=== PATIENT | male | born 1940 | race Caucasian/White ===

== ENCOUNTER 2024-01-06 17:46 | Emergency (ER) | payer MEDICARE, SELFPAY ==
[2024-01-06 17:51] VITALS: BP 166/95; PULSE 60; TEMP 36.4; O2SAT 97; BMI 24.3
--- NOTE | 2024-01-06 17:57 | ED.UPPEXIN1 ---
HPI HPI - Extremity Injury (Upper) General Chief Complaint: Extremity Injury, Upper Stated Complaint: FALL, UPPER EXTREMITY INJURY Time Seen by Provider: 01/06/24 17:53 Source: patient and family Mode of arrival: Wheelchair Limitations: no limitations History of Present Illness HPI narrative: This patient is here with family members with an injury to his left shoulder. He was trying to step over a snow fence and stumbled. When he got up he stumbled on it again. He is already under the care of Dr. Sheridan or local orthopedist for bursitis in that same left shoulder. He does not have any injury to his head or neck. There is no LOC. He has no pain in his elbow wrist or forearm. Otherwise his vital signs here are stable. His family members indicate that he does have memory loss Related Data Home Medications ?Medication ?Instructions ?Recorded ?Confirmed atorvastatin 80 mg tablet 80 mg PO QPM 01/06/24 01/06/24 clopidogrel 75 mg tablet 75 mg PO .QD 01/06/24 01/06/24 donepezil 5 mg tablet 5 mg PO .QHS 01/06/24 01/06/24 latanoprost 0.005 % eye drops 1 drp ophthalmic (eye) .QHS 01/06/24 01/06/24 rivaroxaban 20 mg tablet (Xarelto) 20 mg PO Q24H 01/06/24 01/06/24 timolol maleate 0.5 % eye drops 1 drp ophthalmic (eye) Q12H 01/06/24 01/06/24 Allergies Allergy/AdvReac Type Severity Reaction Status Date / Time No Known Drug Allergies Allergy Verified 01/06/24 17:51 Opioid HPI Opioid Management Most Recent Pain and Opioid Data: Last Pain Scale 10 01/06/24 18:08 Last MAR Pain Assessment 01/06/24 18:08 Exam Narrative Exam Narrative: Very pleasant gentleman 83 years old. Oriented x 3. Is able to relay the history accurately. Does not seem confused at this moment. Problem focused examination shows her to be pain with no obvious deformity in the left shoulder area. Distal clavicle is slightly sore but is primarily the proximal humerus that sore. His distal radial, ulnar, and median nerve function is normal. He has no pain to his elbow area. He has no evidence of abrasions and or injury contusions to his craniofacial structures. Ribs sternum are all normal. He does have a sternotomy consistent with previous coronary disease and he is on blood thinners. Constitutional Vital Signs, click to edit/add: Last Vital Signs Temp 97.5 F L 01/06/24 17:51 Pulse 60 01/06/24 17:51 Resp 16 01/06/24 17:51 BP 166/95 H 01/06/24 17:51 Pulse Ox 97 01/06/24 17:51 Course Vital Signs Vital signs: Vital Signs Temperature 97.5 F L 01/06/24 17:51 Pulse Rate 60 01/06/24 17:51 Respiratory Rate 16 01/06/24 17:51 Blood Pressure 166/95 H 01/06/24 17:51 Pulse Oximetry 97 01/06/24 17:51 Temperature 97.5 F L 01/06/24 17:51 Pulse Rate 60 01/06/24 17:51 Respiratory Rate 16 01/06/24 17:51 Blood Pressure 166/95 H 01/06/24 17:51 Pulse Oximetry 97 01/06/24 17:51 MDM - Extremity Injury (Upper) MDM Narrative Medical decision making narrative: X-ray of the shoulder are done my preliminary review shows no obvious abnormality. We will await final interpretation from the radiologist. Discharge Plan Discharge Chief Complaint: Extremity Injury, Upper Clinical Impression: Contusion of left shoulder Patient Disposition: Still a Patient Prescriptions / Home Meds: No Action latanoprost 0.005 % drops OPHTHALMIC (EYE) atorvastatin 80 mg tablet donepezil 5 mg tablet ibuprofen 800 mg tablet clopidogrel 75 mg tablet timolol maleate 0.5 % drops OPHTHALMIC (EYE) metoprolol tartrate 25 mg tablet Xarelto 20 mg tablet Print Language: Ugandan Referrals: Physician,Non-Staff, [Physician] - 1 week
--- NOTE | 2024-01-06 17:59 | XR_ITS ---
The [address] [address] Patient Name: ARCHIE DUNCAN MRN: [id number] date: 1940 Sex: M Assigned Patient Location: ER Current Patient Location: ED.MAIN Accession/Order Number: [id number] Exam Date: 01/06/2024 18:18 Report Date: 01/06/2024 19:26 At the request of: AMRIT FARNSWORTH Procedure: XR shoulder LT min 2V IMAGES REVIEWED: XR shoulder LT min 2V COMPARISON: None available. CLINICAL INDICATION: Trauma FINDINGS/IMPRESSION: No acute fracture of the left shoulder. Patient with apparent severe left glenohumeral degenerative change and suspected chronic slight anterior positioning of the humeral head relative to the glenoid as seen on the transscapular Y view. If there is persistent clinical concern for left glenohumeral dislocation consider further evaluation with an axillary view. Moderate degenerative change left AC joint with chronic ossicle. Osteopenia. Electronically authenticated by: CHAU ACEVEDO Date: 01/06/2024 19:26
[2024-01-06] MEDS: HYDROCODONE/ACET 5-325 MG TABLET 1 TAB PO (18:08)
[2024-01-06 19:45] VITALS: BP 135/73; PULSE 60; O2SAT 98
== END 2024-01-06 19:50 | disposition home or self-care (01) ==
PROVIDERS: Emergency Provider Internal Medicine; PCP Internal Medicine
DX: S40.012A Contusion of left shoulder, initial encounter (principal); W01.0XXA Fall on same level from slipping, tripping and stumbling without subsequent striking against object, initial encounter
CPT/HCPCS: 73030; 99283

== ENCOUNTER 2024-01-24 08:38 | Outpatient (OUT) | payer MEDICARE, SELFPAY ==
--- NOTE | 2024-01-24 08:42 | MR_ITS ---
The [address] [address] Patient Name: ARCHIE DUNCAN MRN: [id number] date: 1940 Sex: M Assigned Patient Location: MRI Current Patient Location: Accession/Order Number: [id number] Exam Date: 01/24/2024 09:00 Report Date: 01/25/2024 10:13 At the request of: EPI Carmona APLING Procedure: MR shoulder LT wo con EXAM: MR shoulder LT wo con REASON FOR EXAM: Internal Derangement Of Left Shoulder M24.812. TECHNIQUE: Multiplanar, multisequence imaging of the left shoulder was performed without contrast COMPARISON: Radiographs 01/06/2024. FINDINGS: Study degraded by motion The AC joint is congruent with joint space narrowing, capsular hypertrophy and subchondral edema. Well-corticated ossific body is noted along the superior margin, likely degenerative. Fluid within the subacromial subdeltoid bursa is nonspecific incidental full-thickness rotator cuff tear. Superimposed on tendinosis, there are full-thickness, fullwidth tears of the supraspinatus and infraspinatus tendons with proximal retraction the level the glenoid. The teres minor tendon is intact. The subscapularis tendon demonstrates tendinosis with intermediate to high-grade full width partial tearing. A complete rupture is not evident. The extracapsular biceps tendon is within the bicipital groove. There is poor visualization of the intracapsular biceps tendon attaching to the biceps anchor, suspicious for a complete tear/rupture of the biceps tendon. The humerus is centered on the glenoid. Intermediate grade chondrosis the glenohumeral cartilage. Small to moderate joint effusion. The bone marrow signal is without fracture. The quadrilateral space is patent. No axillary lymphadenopathy. MR/MR shoulder LT wo con IMPRESSION: 1. Study degraded by motion. 2. Full-thickness, fullwidth tears of the supraspinatus and infraspinatus tendons with proximal retraction the glenoid. Intermediate to high-grade partial-thickness fullwidth tear of the subscapularis tendon. 3. Intracapsular biceps tendon rupture. 4. 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 Electronically authenticated by: DAVID IQBAL Date: 01/25/2024 10:13
== END 2024-01-24 08:39 | disposition home or self-care (01) ==
LOC: MRI 08:38
PROVIDERS: PCP Internal Medicine; Visit Provider Nurse Practitioner Family
DX: M24.812 Other specific joint derangements of left shoulder, not elsewhere classified (principal); S46.012A Strain of muscle(s) and tendon(s) of the rotator cuff of left shoulder, initial encounter; S46.212A Strain of muscle, fascia and tendon of other parts of biceps, left arm, initial encounter; M19.012 Primary osteoarthritis, left shoulder
CPT/HCPCS: 73221

== ENCOUNTER 2025-02-08 10:20 | Outpatient (OUT) | payer MEDICARE, SELFPAY ==
--- OUTSIDE RECORDS SUMMARY | 2025-02-08 10:25 | XMS_ITS | Clinical Summary ---
Author Organization [facility] Address [address] [place] [address] Phone Care Team Providers Care Chief Fundraising Officer Name Role Phone Unavailable Primary Care Provider Unavailabl e Social History Tobacco Use Types Packs/Day Years Used Date Smoking Tobacco: Never Assessed Sex and Gender Information Value Date Recorded Sex Assigned at Not on file Legal Sex Male 6:46 PM EST Gender Identity Not on file Sexual Orientation Not on file Plan of Treatment Not on file
--- OUTSIDE RECORDS SUMMARY | 2025-02-08 10:25 | XMS_ITS | Clinical Summary ---
Author Organization [facility] Address [address] [place] [address] Care Team Providers Care Outside Salesperson Name Role Phone Alberto Ram DO Primary Care Provider [phone] Allergies No known active allergies Medications Vitamin E 45 MG (100 UNIT) capsule Take 100 Units by mouth in the morning. Active travoprost (Travatan Z) 0.004 % solution ophthalmic solution Active timolol (Timoptic) 0.5 % ophthalmic solution instill 1 (ONE) DROP IN BOTH EYES TWICE DAILY 11/29/2023 Active clopidogrel (Plavix) 75 MG tablet Take 1 tablet by mouth Daily Active clopidogrel (Plavix) 75 MG tablet Take 75 mg by mouth in the morning. Active donepezil (Aricept) 5 MG tablet Take 1 tablet by mouth at bedtime Active metoprolol tartrate (Lopressor) 25 MG tablet TAKE 1/2 (ONE-HALF) OF A TABLET BY MOUTH TWICE DAILY Active metoprolol tartrate (Lopressor) 25 MG tablet TAKE 1/2 (ONE-HALF) OF A TABLET BY MOUTH TWICE DAILY Active latanoprost (Xalatan) 0.005 % ophthalmic solution instill 1 (ONE) DROP IN BOTH EYES AT BEDTIME 11/29/2023 Active Ferrous Sulfate (IRON PO) Take 1 tablet by mouth in the morning. Active cholecalciferol (Vitamin D-3) 50 MCG (2000 UT) capsule Take 2,000 Units by mouth in the morning. Active brimonidine (AlphaGAN P) 0.2 % ophthalmic solution Active bicalutamide (Casodex) 50 MG chemo tablet Active atorvastatin (Lipitor) 80 MG tablet TAKE 1 TABLET BY MOUTH DAILY IN THE EVENING Active ascorbic acid (Vitamin C) 100 MG tablet Take 100 mg by mouth in the morning. Active Family History Relation Name Status Comments Father Mother Social History Tobacco Use Types Packs/Day Years Used Date Smoking Tobacco: Never Smokeless Tobacco: Never Tobacco Cessation:Counseling Given: Not Answered Alcohol Use Standard Drinks/Week Comments Not Currently 0 (1 standard drink = 0.6 oz pur e alcohol) Sex and Gender Information Value Date Recorded Sex Assigned at Not on file Legal Sex Male 7:40 PM EDT Gender Identity Not on file Sexual Orientation Not on file Last Filed Vital Signs Vital Sign Reading Time Taken Comments Blood Pressure 139/71 07/28/2018 12:00 PM EST Pulse - - Temperature - - Respiratory Rate - - Oxygen Saturation - - Inhaled Oxygen Concentration - - Weight 71.2 kg (157 lb) 02/01/2024 1:05 PM EDT Height 172.7 cm (5' 8 ) 02/01/2024 1:05 PM EDT Body Mass Index 23.87 02/01/2024 1:05 PM EDT Plan of Treatment Health Maintenance Due Date Last Done Comments Pneumococcal Vaccine: 65+ Ye ars (2 of 2 - PCV) 03/21/2016 03/21/2015 Influenza Vaccine (#1) 2025 3, 03/25/2022, 02/22/2021, Additional history exists Insurance MEDICARE [facility] Care Teams Outside Salesperson Relationship Specialty Start Date End Date Alberto Ram DO PCP - General Internal Medicine 12/14/23
--- OUTSIDE RECORDS SUMMARY | 2025-02-08 10:25 | XMS_ITS | Clinical Summary ---
Author Organization [employer] Address [id number] [address] [place] [address] Care Team Providers Care Hr Director Name Role Phone YoAlberto Primary Care Provider [phone] Allergies No known active allergies Medications clopidogrel (PLAVIX) 75 mg tablet Take 75 mg by mouth daily. Active rivaroxaban (XARELTO) 20 mg tablet tablet Take 20 mg by mouth daily. Active atorvastatin (LIPITOR) 80 mg tablet Take 80 mg by mouth daily. Active metoprolol tartrate (LOPRESSOR) 25 mg tablet Take 12.5 mg by mouth 2 (two) times a day. Active [id number] A-calcium &mins (THERAGRAN-M) 9 mg iron-400 mcg tablet Take 1 tablet by mouth daily. Active cholecalciferol , vitamin D3, 2,000 units capsule Take 2,000 Units by mouth daily. Active ascorbic acid, vitamin C, (vitamin C) 100 MG tablet Take 100 mg by mouth daily. Active vitamin E 100 units capsule Take 100 Units by mouth daily. Active omega-3 fatty acids-fish oil (FISH OIL) 300-1,000 mg capsule Take 2 g by mouth daily. Active latanoprost (XALATAN) 0.005 % ophthalmic solution Administer 1 drop to both eyes 2 (two) times a day. 9 Active Active Problems No known active problems Family History Medical History Relation Name Comments Alcohol abuse Father Cancer Mother kidney Relation Name Status Comments Father Mother Social History Tobacco Use Types Packs/Day Years Used Date Smoking Tobacco: Never Smokeless Tobacco: Never Alcohol Use Standard Drinks/Week Comments No 0 (1 standard drink = 0.6 oz pur e alcohol) AUDIT-C Answer Date Recorded Frequency of Alcohol Consumption Never 08/12/2018 Average Number of Drinks Not on file 019 Frequency of Binge Drinking Not on file 07/23 Childcare Answer Date Recorded Childcare Unknown 11/29/2018 Employment Answer Date Recorded Employment Unknown 11/29/2018 Purpose - Life Answer Date Recorded Purpose and direction in life Unknown Sex and Gender Information Value Date Recorded Sex Assigned at Not on file Legal Sex Male 8:50 PM EDT Gender Identity Not on file Sexual Orientation Not on file Last Filed Vital Signs Vital Sign Reading Time Taken Comments Blood Pressure 110/66 08/24/2018 12:00 PM EST Pulse 54 08/24/2018 10:23 AM EST Temperature 36.5 C (97.7 F) 08/24/2018 10:10 AM EST Respiratory Rate 16 08/24/2018 10:23 AM EST Oxygen Saturation 94% 08/24/2018 12:00 PM EST Inhaled Oxygen Concentration - - Weight 74.8 kg (165 lb) 08/24/2018 7:01 AM EST Height 172.7 cm (5' 8 ) 08/24/2018 7:01 AM EST Body Mass Index 25.09 08/24/2018 7:01 AM EST Plan of Treatment Not on file Medical Devices Implanted Type Area Senior Systems Programmer Device Identifier Shelf Expiration Date Model / Serial / Lot Anch Sut 4.75mm 2 Healicoil - Sna - [id number] Implanted:Qty: 1 on 08/24/2018 by Sky Sheridan DO at [facility] [employer] Right: Shoulder [employer] 05/02/2021 [id number] / NA / [id number] Anch Sut 4.75mm 2 Regenesorb - Sna - [id number] Implanted:Qty: 1 on 08/24/2018 by Sky Sheridan DO at [facility] [employer] Right: Shoulder [employer] 05/18/2021 [id number] / NA / [id number] Anch Sut 5.5mm Multifix S Ult Rpl [id number] - Sna - [id number] Implanted:Qty: 1 on 08/24/2018 by Sky Sheridan DO at [facility] [employer] Right: Shoulder [employer] 04/25/2021 [id number] / NA / [id number] Anch Sut 5.5mm Multifix S Ult [facility] [id number] - Sna - [id number] Implanted:Qty: 1 on 08/24/2018 by Sky Sheridan DO at [facility] [employer] Right: Shoulder [employer] 04/25/2021 [id number] / NA / Insurance MEDICARE [facility] Care Teams Hr Director Relationship Specialty Start Date End Date Alberto Ram DO [address] [place] [address] PCP - General Internal Medicine 08/10/18
--- OUTSIDE RECORDS SUMMARY | 2025-02-08 10:25 | XMS_ITS | Clinical Summary ---
Author Organization [facility] Address [address] [place], [place] [address] Care Team Providers Care Automotive Hardware Engineer Name Role Phone Alberto Ram DO Primary Care Provider [phone] Allergies No known active allergies Medications atorvastatin (LIPITOR) 80 mg tablet Take 80 mg by mouth once daily. Active rivaroxaban (XARELTO) 20 mg tablet Take 20 mg by mouth daily with dinner. Active clopidogrel (PLAVIX) 75 mg tablet Take 75 mg by mouth once daily. Active donepezil (ARICEPT) 5 mg tablet Take 5 mg by mouth daily at bedtime. Active metoprolol tartrate, short acting, (LOPRESSOR) 25 mg tablet Take 25 mg by mouth twice daily. Take half a tab BID Active brimonidine (ALPHAGAN) 0.2 % ophthalmic solution brimonidine 0.2 % eye drops Active omega-3 fatty acids/fish oil (FISH OIL-OMEGA-3 FATTY ACIDS) 300-1,000 mg cap Take 2 g by mouth. Active travoprost (TRAVATAN Z) 0.004 % ophthalmic drops Travatan Z 0.004 % eye drops Active Cholecalciferol , Vitamin D3, 50 mcg (2,000 unit) cap Take 2,000 Units by mouth. Active MAGNESIUM CHLORIDE ORAL Take by mouth. A ctive Active Problems Problem Noted Date Diagnosed Date Iron deficiency anemia due to chronic blood loss 10/24/2021 Immunizations Immunization Administration Dates Next Due influenza (HD-IIV3) vaccine, age 65+ yr, high dose, trivalent, PF (FLUZONE HIGH-DOSE) 03/11/2017,04/20/2016,05/03/2015 influenza (HD-IIV4) vaccine, age 65+ yr, high dose, quadrivalent, PF (FLUZONE HIGH-DOSE) 02/22/2021,02/03/2020 influenza (IIV3) vaccine, tr ivalent (AFLURIA, FLULAVAL, FLUVIRIN, FLUZONE) 04/11/2014,04/14/2013 influenza (IIV4) vaccine, ag e 6 mo - 64 yr, quadrivalent, PF (AFLURIA, FLUARIX, FLULAVAL, FLUZONE) 04/08/2020,03/21/2016 influenza (IIV4) vaccine, qu adrivalent (AFLURIA, FLULAVAL, FLUZONE) 04/19/2019 influenza (aIIV3) vaccine, a ge 65+ yr, trivalent, PF (FLUAD) 04/20/2018 pneumococcal polysaccharide (PPV23) vaccine, 23 valent (PNEUMOVAX 23) 03/21/2015 Family History Medical History Relation Comments Alcohol abuse Father Melanoma Mother Relation Status Comments Father Mother Social History Tobacco Use Types Packs/Day Years Used Date Smoking Tobacco: Never Smokeless Tobacco: Never Area Deprivation Index Answer Date Holden rded National Score (1-100), lower number is lower ri sk 60 07/11/2022 State Score (1-10), lower number is lower risk N ot on file 07/11/2022 Data from: https://www.neighborhoodatlas.[facility].edu/. Last address used for calculation [address] 07/11/2022 Sex and Gender Information Value Date Recorded Sex Assigned at Not on file Legal Sex Male 8:51 AM EST Gender Identity Not on file Sexual Orientation Not on file Last Filed Vital Signs Vital Sign Reading Time Taken Comments Blood Pressure 134/84 12/05/2021 10:21 AM EDT Pulse 56 12/05/2021 10:21 AM EDT Temperature 36.5 C (97.7 F) 12/05/2021 10:21 AM EDT Respiratory Rate 16 12/05/2021 10:21 AM EDT Oxygen Saturation 99% 12/05/2021 10:21 AM EDT Inhaled Oxygen Concentration - - Weight 71.4 kg (157 lb 7.5 oz) 12/05/2021 10:21 AM EDT Height 174 cm (5' 8.5 ) 12/05/2021 10:21 AM EDT Body Mass Index 23.59 12/05/2021 10:21 AM EDT Plan of Treatment Health Maintenance Due Date Last Done Comments Anxiety Screening 02/08/1960 Depression Screening 02/08/1960 DTaP,Tdap,Td Vaccine (1 - Tdap) 1961 Shingrix Vaccine (1 of 2) 02/08/1992 Pneumococcal Vaccine: 50+ (2 of 2 - PCV) 03/21/2016 03/21/2015 RSV Vaccine (1 - 1-dose 75+ series) 2017 Advance Directive Discussion 06/21/2024 Diabetes Screening 10/24/2024 10/24/2021, 08/12/2018 Influenza Vaccine (#1) 2025 1, 04/08/2020, 02/03/2020, Additional history exists Procedures Procedure Name Priority Date/Time Associated Diagnosis Comments COMPREHENSIVE METABOLIC PANEL Routine 10/24/2021 11:14 AM EDT Iron deficiency anemia due to chronic blood loss from Last 3 Months or Most Recently Relevant to Health Maintenance Results * (ABNORMAL) COMP METABOLIC PANEL (10/24/2021 11:14 AM EDT) Protein, Total 6.8 6.3 - 8.0 g/dL 10/24/2021 12:02 PM EDT [facility] Albumin 4.6 3.9 - 4.9 g/dL 10/24/2021 12:02 PM EDT [facility] Calcium, Total 9.7 8.5 - 10.2 mg/dL 10/24/2021 12:02 PM EDT [facility] Bilirubin, Total 0.3 0.2 - 1.3 mg/dL 10/24/2021 12:02 PM EDT [facility] Alkaline Phosphatase 97 38 - 113 U/L 10/24/2021 12:02 PM EDT [facility] AST 28 14 - 40 U/L 10/24/2021 12:02 PM EDT [facility] ALT 16 10 - 54 U/L 10/24/2021 12:02 PM EDT [facility] Glucose 108(H) 74 - 99 mg/dL 10/24/2021 12:02 PM [facility] Comment: The [place] Diabetes Association (ADA) provides guidance for cutoff values for fasting glucose and random glucose. The ADA defines fasting as no caloric intake for at least 8 hours. Fasting plasma glucose results between 100 to 125 mg/dL indicate increased risk for diabetes (prediabetes). Fasting plasma glucose results greater than or equal to 126 mg/dL meet the criteria for diagnosis of diabetes. In the absence of unequivocal hyperglycemia, results should be confirmed by repeat testing. In a patient with classic symptoms of hyperglycemia or hyperglycemic crisis, random plasma glucose results greater than or equal to 200 mg/dL meet the criteria for diagnosis of diabetes. Reference: Standards of Medical Care in Diabetes 2016, [place] Diabetes Association. Diabetes Care. 2016.39(Suppl 1). BUN 11 9 - 24 mg/dL 10/24/2021 12:02 PM [facility] Creatinine 1.04 0.73 - 1.22 mg/dL 10/24/2021 12:02 PM [facility] Sodium 141 136 - 144 mmol/L 10/24/2021 12:02 PM [facility] Potassium 4.1 3.7 - 5.1 mmol/L 10/24/2021 12:02 PM [facility] Chloride 105 97 - 105 mmol/L 10/24/2021 12:02 PM [facility] CO2 24 22 - 30 mmol/L 10/24/2021 12:02 PM [facility] Anion Gap 12 9 - 18 mmol/L 10/24/2021 12:02 PM [facility] Estimated Glomerular Filtration Rate 73 >=60 mL/min/1. 73m 10/24/2021 12:02 PM [facility] Comment:Estimated Glomerular Filtration Rate (eGFR) is calculated using the 2020 CKD-EPI creatinine equation. This equation utilizes serum creatinine, sex, and age as parameters. The creatinine assay has traceable calibration to isotope dilution- mass spectrometry. Refer to KDIGO guidelines for clinical interpretation. In patients with unstable renal function, e.g. those with acute kidney injury, the eGFR may not accurately reflect actual GFR. Blood BLOOD SPECIMEN / Unknown Venipuncture / Unknown 10/24/2021 11:14 AM EDT 10/24/2021 11:14 AM EDT Jose A Sotomayor MD LABORATORY Final Result [facility] [address] [place] [address] from Last 3 Months or Most Recently Relevant to Health Maintenance Insurance MEDICARE Care Teams Automotive Hardware Engineer Relationship Specialty Start Date End Date Alberto Ram DO [address] [facility] [place] [address] PCP - General Internal Medicine 10/21/21
--- OUTSIDE RECORDS SUMMARY | 2025-02-08 10:25 | XMS_ITS | Encounter Summary ---
Author Organization [facility] Address [facility] [place] [id number] Care Team Providers Care Qi Specialist Name Role Phone Alberto Ram DO Primary Care Provider [phone] Source Comments In the event this information is protected by the Federal Confidentiality of Alcohol and Drug AbusePatient Records regulations: The Federal rules restrict any use of the information to criminally investigate or prosecute any alcohol or drug abuse patient.[facility] Encounter Details Date Type Department Care Team (Latest Contact Info) Description 10/21/2021 H&P External-NonCCF Provider, External, [place] Do not enter address information under generic External Provider. Social History Tobacco Use Types Packs/Day Years Used Date Smoking Tobacco: Never Assessed Sex and Gender Information Value Date Recorded Sex Assigned at Not on file Legal Sex Male 8:51 AM EST Gender Identity Not on file Sexual Orientation Not on file COVID-19 Exposure Response Date Recorded In the last 10 days, have yo u been in contact with someone who was confirmed or suspected to have Coronavirus/COVID-19? No / Unsure 10/24/2021 11:05 AM EDT documented as of this encounter Plan of Treatment Not on file documented as of this encounter Visit Diagnoses Not on filedocumented in this encounter Care Teams Qi Specialist Relationship Specialty Start Date End Date Alberto Ram DO [address] [place] [address] PCP - General Internal Medicine 10/21/21 documented as of this encounter
--- OUTSIDE RECORDS SUMMARY | 2025-02-08 10:28 | XMS_ITS | CCD ---
Author Organization [facility] [place] [facility] Care Team Providers Care Pewter Caster Name Role Phone SATNAM MAHAN DANIEL J Unavailable Unavailable ALBERTO RAM Unavailable Unavailable YO, ALBERTO Unavailable Unavailable PHYSICIAN, DEFAULT Unavailable Unavailable PHYSICIAN, DEFAULT Unavailable Unavailable YO, ALBERTO Unavailable Unavailable SATNAM MAHAN Unavailable Unavailable SATNAM MAHAN Unavailable Unavailable YO, ALBERTO Unavailable Unavailable YO, ALBERTO Unavailable Unavailable Payal James Unavailable Unavailable Alberto Ram DO Primary Care Provider Alberto Ram DR ALBERTO RAM Primary Care Unavailable SHAIKH Kendell RICHARDS Admitting Unavailable SHAIKH Kendell RICHARDS Attending Unavailable YO, DR WATSON Consulting Unavailable YO, DR WATSON Attending Unavailable YO, DR AWTSON Admitting Unavailable YO, DR WATSON Primary Care Unavailable EPI EDGAR Attending Unavailable HERVE, EPI Carmona Referring Unavailable APLFRANCISCO JAVIER, EPI Carmona Attending Unavailable APLFRANCISCO JAVIER, EPI Carmona Attending Unavailable ARCHIE SAMAYOA Attending Unavailable DO Alberto Ram Primary Care Provider DO Alberto Ram Attending Provider [phone] Alberto Ram Attending Unavailable Alberto Ram Primary Care Unavailable Alberto Ram Admitting Unavailable Medications Current Medications Medication Drug Class(es) Dates Sig (Normalized) Sig (Original) atorvastatin 10 mg oral tablet (14 sources) HMG-CoA Reductase Inhibitor Start: 02-09-2024 take 10 mg by mouth once daily Atorvastatin Active 10 MG PO Daily February 09, 2024 10:30pm Start: 02-09-2024 End: 02-09-2024 take 80 mg by mouth once daily Atorvastatin Discontinu ed 80 MG PO Daily February 09, 2024 3:07pm February 09, 2024 10:30pm Start: 05-31-2017 End: 02-09-2024 take 80 mg by mouth once daily Atorvastatin Discontinu ed 80 MG PO Daily May 31, 2017 1:00am February 09, 2024 3:08pm Comment on above: Take 80 mg by mouth once daily. clopidogrel 75 mg oral tablet (13 sources) [id number] Platelet Inhibitor Start: 09-08-2023 take 1 tablet by mouth once daily Clopidogrel Active 0 .ROUTE .COMPLEX 90 September 08, 2023 10:12pm TAKE 1 TABLET BY MOUTH DAILY Start: 05-31-2017 End: 09-08-2023 take 1 tablet by mouth once daily Clopidogrel (Plavix) 75 mg Tablet Discontinued 75 MG PO Daily May 31, 2017 1:00am September 08, 2023 10:12pm Comment on above: Take 75 mg by mouth once daily. donepezil (13 sources) Start: 09-08-2023 take 1 tablet by mouth at bedtime Donepezil Active 0 .ROUTE .COMPLEX 90 September 08, 2023 10:12pm TAKE 1 TABLET BY MOUTH AT BEDTIME Start: 09-08-2023 End: 09-08-2023 take 5 mg by mouth once daily at bedtime Donepezil Discontinued 5 MG PO Daily at bedtime September 08, 2023 12:00am September 08, 2023 10:12pm take 1 tablet by marimar th at bedtime Donepezil HCl 5 mg TAKE 1 TABLET BY MOUTH AT BEDTIME for 90 Active Comment on above: Take 5 mg by mouth d aily at bedtime. Lactobacillus Combination No.4 (Probiotic) 3 billion cell Capsule (2 sources) Start: 7 take 3 capsules by mouth once daily Lactobacillus Combination No.4 (Probiotic) 3 billion cell Capsule Active 3000 MMU CELLS PO Daily May 31, 2017 1:00am 24 hr metoprolol succinate 25 mg extended release oral tablet (10 sources) beta-Adrenergic Leslei Start: 3 take 0.5 tablet by mouth once daily Metoprolol Succinate ER 25 MG 1/2 tablet Orally Once a day for 30 days October, Active Start: 05-31-2017 take 25 mg by mouth once daily Metoprolol Tartrate Active 25 MG PO Daily May 31, 2017 1:00am take 1 tablet by marimar th twice daily, then take 0.5 tablet by mouth twice daily metoprolol tartrate, short acting, (LOPRESSOR) 25 mg tablet Take 25 mg by mouth twice daily. Take half a tab BID 0 Active Comment on above: Take 25 mg by mouth twice daily. Take half a tab BID Multivitamin preparation (4 sources) Start: 11-10-2021 take 1 tablet by mouth once daily Multivitamin Active 1 TAB PO Daily November 10, 2021 12:00am Start: 05-31-2017 End: 11-10-2021 take 1 tablet by mouth once daily Multivitamin Discontinued 1 TAB PO Daily May 31, 2017 1:00am November 10, 2021 10:41am rivaroxaban 20 mg oral tablet (17 sources) Factor Xa Inhibitor Start: 08-23-2023 take 1 tablet by mouth once daily Rivaroxaban (Xarelto) 20 mg tablet Active 0 .ROUTE .COMPLEX August 23, 2023 1:57pm TAKE 1 TABLET BY MOUTH DAILY Start: 07-14-2022 take 1 tablet by marimar th once daily Xarelto 20 20 1 tablet PO Daily for 30 days Jun, Active Start: 12-13-2017 End: 08-23-2023 take 1 tablet by mouth once daily at dinner Rivaroxaban (Xarelto) 20 mg tablet Discontinued 20 MG PO Daily August 23, 2023 1:00am August 23, 2023 1:57pm must administer with evening meal Start: 08-27-2017 End: 12-13-2017 take 1 tablet by mouth once daily Rivaroxaban (Xarelto) 10 mg Tablet Discontinued 1 TAB PO Daily August 27, 2017 1:00am December 13, 2017 11:09am Comment on above: Take 20 mg by mouth daily with dinner. Completed/Discontinued Medications Medication Drug Class(es) Dates Sig (Normalized) Sig (Original) aspirin 81 mg delayed release oral tablet (2 sources) Platelet Aggregation Inhibitor, Nonsteroidal Anti-inflammatory Drug Start: 05-31-2017 End: 08-27-2017 take 1 tablet by mouth once daily Aspirin (Aspir-Low) 81 mg Tablet,Delayed Release (Dr/Ec) Discontinued 81 MG PO Daily May 31, 2017 1:00am August 27, 2017 11:06am bicalutamide 50 mg oral tablet (2 sources) Androgen Receptor Inhibitor Start: 05-31-2017 End: 08-27-2017 take 1 tablet by mouth once daily Bicalutamide (Casodex) 50 mg Tablet Discontinued 50 MG PO Daily May 31, 2017 1:00am August 27, 2017 11:09am brimonidine tartrate 2 mg/ml ophthalmic solution (3 sources) alpha-Adrenergic Agonist brimonidine (ALPHAGAN) 0.2 % ophthalmic solution brimonidine 0.2 % eye drops 0 Active Comment on above: brimonidine 0.2 % ey e drops cholecalciferol 0.05 mg oral capsule (3 sources) Vitamin D Cholecalciferol, Vitamin D3, 50 mcg (2,000 unit) cap Take 2,000 Units by mouth. 0 Active Comment on above: Take 2,000 Units by mouth. Magnesium Chloride (3 sources) MAGNESIUM CHLORIDE ORAL Take by mouth. 0 Active Comment on above: Take by mouth. omega-3 fatty acids/fish oil (FISH OIL-OMEGA-3 FATTY ACIDS) 300-1,000 mg cap (3 sources) omega-3 fatty acids/fish oil (FISH OIL-OMEGA-3 FATTY ACIDS) 300-1,000 mg cap Take 2 g by mouth. 0 Active Comment on above: Take 2 g by mouth. travoprost 0.04 mg/ml ophthalmic solution (3 sources) Prostaglandin Analog travoprost (TRAVATAN Z) 0.004 % ophthalmic drops Travatan Z 0.004 % eye drops 0 Active Comment on above: Travatan Z 0.004 % e ye drops Problems Active Problems Problem Classification Problem Date Documented Date Episodic/Chronic Cancer of prostate (9 sources) Carcinoma of prostate; Translations: [Malignant neoplasm of prostate] 07-07-2023 Chronic Cardiac dysrhythmias (18 sources) Unspecified atrial flutter; Translations: [Unspecified atrial fibrillation] Onset: 10-06-2017 Chronic Coronary atherosclerosis and other heart disease (13 sources) Atherosclerotic heart disease of [place] coronary artery without angina pectoris; Translations: [Coronary arteriosclerosis] Onset: 10-06-2017 Chronic Deficiency and other anemia (5 sources) Iron deficiency anemia due to blood loss; Translations: [Iron deficiency anemia secondary to blood loss (chronic)] Onset: 10-24-2021 Chronic Deficiency and other anemia (5 sources) Anemia due to chronic blood loss; Translations: [Iron deficiency anemia secondary to blood loss (chronic)] Chronic Deficiency and other anemia (6 sources) Iron deficiency anemia secondary to blood loss (chronic); Translations: [IRON DEFIC ANEMIA SEC BLD LOSS CHRN] Onset: 10-21-2022 Chronic Deficiency and other anemia (5 sources) Iron deficiency anemia; Translations: [Iron deficiency anemia, unspecified] Episodic Deficiency and other anemia (2 sources) Anemia; Translations: [Anemia, unspecified] 06-02-2023 Episodic Delirium, dementia, and amnestic and other cognitive disorders (4 sources) Alzheimer's disease; Translations: [Alzheimer's disease, unspecified] 11-22-2023 Chronic Disorders of lipid metabolism (13 sources) Hyperlipidemia, unspecified; Translations: [Pure hypercholesterolemia] Onset: 10-06-2017 Chronic Essential hypertension (13 sources) Essential (primary) hypertension; Translations: [Essential hypertension] Onset: 10-06-2017 Chronic Glaucoma (5 sources) Glaucoma; Translations: [Unspecified glaucoma] Chronic Nutritional deficiencies (5 sources) Vitamin D deficiency; Translations: [Vitamin D deficiency, unspecified] Chronic Osteoarthritis (10 sources) Arthritis of left knee; Translations: [Unilateral primary osteoarthritis, left knee] Chronic Other aftercare (1 source) detention (current) use of antithrombotics/antip latelets; 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/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 LATELETS] Onset: 02-15-2018 Episodic Other screening for suspected conditions (not mental disorders or infectious disease) (7 sources) Raised TSH level; Translations: [Other specified abnormal findings of blood chemistry] 06-02-2023 Episodic Thyroid disorders (20 sources) Thyroid nodule; Translations: [Nontoxic single thyroid nodule] Onset: 10-28-2022 Chronic Unclassified (2 sources) Unknown / UNK(Unknown) Onset: 10-06-2017 Past or Other Problems Problem Classification Problem Date Documented Da te Episodic/Chronic Cancer of prostate (1 source) Personal history of malignant neoplasm of prostate; Translations: [PERSONAL HISTORY OF MALIGNANT NEOPLASM OF PROSTATE] Onset: 10-06-2017 Episodic Coronary atherosclerosis and other heart disease (1 source) Presence of aortocoronary bypass graft; Translations: [PRESENCE OF AORTOCORONARY BYPASS GRAFT] Onset: 10-06-2017 Episodic Other aftercare (4 sources) Encounter for therapeutic drug level monitoring; Translations: [ENC THERAPEUTC DRUG LEVL MONITORING] Onset: 07-02-2022 Episodic Other aftercare (1 source) 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; Translations: [ASSISTED CURRNT USE ANTICOAGULANTS] Onset: 07-22-2022 Episodic Other connective tissue disease (2 sources) Rotator cuff arthropathy of left shoulder; Translations: [Unspecified rotator cuff tear or rupture of left shoulder, not specified as traumatic] Onset: 06-21-2023 01-25-2024 Episodic Results Test Name Value Interpretation Reference Range Facility T3, TOTAL (TRIIODOTHYRONINE) on 10-22-2022 T3, TOTAL 140 ng/dL Normal 71-180 [facility] Comment on above: Performed By: #### T 3TOTAL #### [facility] [address] [place] [address] Dr. Bertha Oglesby CBC AUTO DIFFon 10-21-2022 BASO # 0.0 103/ul Normal 0.0-0.1 [facility] Comment on above: Performed By: #### C BC, RETIC #### [facility] [address] [place] [address] Dr. Bertha Oglesby Basophils/100 WBC (Bld) 0.5 % Normal 0.2-2.0 [facility] Comment on above: Performed By: #### C BC, RETIC #### [facility] [address] [place] [address] Dr. Bertha Oglesby EO # 0.1 103/ul Normal 0.0-0.7 [facility] Comment on above: Performed By: #### C BC, RETIC #### [facility] [address] [place] [address] Dr. Bertha Oglesby Eosinophils/100 WBC (Bld) 2.5 % Normal 0.9-7.0 [facility] Comment on above: Performed By: #### C BC, RETIC #### [facility] [address] [place] [address] Dr. Bertha Oglesby Erythrocyte distribution width (RBC) [Ratio] 12.9 % Normal 11.0-15.0 [facility] Comment on above: Performed By: #### C BC, RETIC #### [facility] [address] [place] [address] Dr. Bertha Oglesby Hematocrit (Bld) [Volume fraction] 40.0 % Critically low 42.0-54.0 [facility] Comment on above: Performed By: #### C BC, RETIC #### [facility] [address] [place] [address] Dr. Bertha Oglesby Hemoglobin (Bld) [Mass/Vol] 13.1 g/dL Critically low 14.0-18.0 [facility] Comment on above: Performed By: #### C BC, RETIC #### [facility] [address] [place] [address] Dr. Bertha Oglesby IG # 0.01 10e3/ul Normal 0.00-0.03 [facility] Comment on above: Performed By: #### C BC, RETIC #### [facility] [address] [place] [address] Dr. Bertha Oglesby IG % 0.2 % Normal 0.0-0.5 [facility] Comment on above: Performed By: #### C BC, RETIC #### [facility] [address] [place] [address] Dr. Bertha Oglesby LYMPH # 1.5 103/ul Normal 1.2-3.8 [facility] Comment on above: Performed By: #### C BC, RETIC #### [facility] [address] [place] [address] Dr. Bertha Oglesby Lymphocytes/100 WBC (Bld) 26.1 % Normal 20.5-60.0 [facility] Comment on above: Performed By: #### C BC, RETIC #### [facility] [address] [place] [address] Dr. Bertha Oglesby MANUAL DIFF REQ NO Normal [facility] Comment on above: Performed By: #### C BC, RETIC #### [facility] [address] [place] [address] Dr. Bertha Oglesby MCH (RBC) [Entitic mass] 30.8 pg Normal 25.9-34.0 [facility] Comment on above: Performed By: #### C BC, RETIC #### [facility] [address] [place] [address] Dr. Bertha Oglesby MCHC (RBC) [Mass/Vol] 32.8 g/dL Normal 29.9-35.2 [facility] Comment on above: Performed By: #### C BC, RETIC #### [facility] [address] [place] [address] Dr. Bertha Oglesby MCV (RBC) [Entitic vol] 94.1 fL Critically high 80.0-94.0 [facility] Comment on above: Performed By: #### C BC, RETIC #### [facility] [address] [place] [address] Dr. Bertha Oglesby MONO # 0.5 103/ul Normal 0.3-0.8 [facility] Comment on above: Performed By: #### C BC, RETIC #### [facility] [address] [place] [address] Dr. Bertha Oglesby Monocytes/100 WBC (Bld) 9.2 % Normal 1.7-12.0 [facility] Comment on above: Performed By: #### C BC, RETIC #### [facility] [address] [place] [address] Dr. Bertha Oglesby NEUT # 3.5 103/ul Normal 1.4-6.5 [facility] Comment on above: Performed By: #### C BC, RETIC #### [facility] [address] [place] [address] Dr. Bertha Oglesby Neutrophils/100 WBC (Bld) 61.5 % Normal 43.0-75.0 [facility] Comment on above: Performed By: #### C BC, RETIC #### [facility] [address] [place] [address] Dr. Bertha Oglesby Platelet mean volume (Bld) [Entitic vol] 10.0 fL Normal 9.5-13.5 [facility] Comment on above: Performed By: #### C BC, RETIC #### [facility] [address] [place] [address] Dr. Bertha Oglesby PLT 220 103/ul Normal 150-450 [facility] Comment on above: Performed By: #### C BC, RETIC #### [facility] [address] [place] [address] Dr. Bertha Oglesby RBC 4.25 106/ul Critically low 4.70-6.10 [facility] Comment on above: Performed By: #### C BC, RETIC #### [facility] [address] [address] [address] Bertha Oglesby WBC 5.7 103/ul Normal 4.0-11.0 [facility] Comment on above: Performed By: #### C BC, RETIC #### [facility] [address] [place] [address] Dr. Bertha Oglesby FERRITINon 10-21-2022 Ferritin [Mass/Vol] 75.0 ng/mL Normal 26.0-388.0 [facility] Comment on above: Performed By: #### F T4, FERR, FETIBC #### [facility] [address] [place] [address] Dr. Bertha Oglesby FREE T4on 10-21-2022 Free T4 [Mass/Vol] 1.01 ng/dL Normal 0.76-1.46 [facility] Comment on above: Performed By: #### F T4, FERR, FETIBC #### [facility] [address] [place] [address] Dr. Bertha Oglesby IRON AND TIBCon 10-21-2022 % SATURATION 27.1 % Normal [facility] Comment on above: Performed By: #### F T4, FERR, FETIBC #### [facility] [address] [place] [address] Dr. Bertha Oglesby Iron [Mass/Vol] 89.0 ug/dL Normal 65.0-175.0 [facility] Comment on above: Performed By: #### F T4, FERR, FETIBC #### [facility] [address] [place] [address] Dr. Bertha Oglesby TIBC DIRECT 329.0 ug/dL Normal 250.0-450. 0 [facility] Comment on above: Performed By: #### F T4, FERR, FETIBC #### [facility] [address] [place] [address] Dr. Bertha Oglesby LIPID PROFILEon 10-21-2022 CHOL-HDL RATIO NORM SEE BELOW Normal [facility] Comment on above: Result Comment: 3.3 - 4.4 LOW RISK 4.4 - 7.1 AVERAGE RISK 7.1 - 11.0 MODERATE RISK >11.0 HIGH RISK Performed By: #### L IPID, ALT, TSH, BMP #### [facility] [address] [place] [address] Dr. Bertha Oglesby Cholesterol [Mass/Vol] 148 mg/dL Normal <=200 [facility] Comment on above: Performed By: #### L IPID, ALT, TSH, BMP #### [facility] [address] [place] [address] Dr. Bertha Oglesby Cholesterol in HDL [Mass/Vol] 41 mg/dL Normal 40-60 [facility] Comment on above: Performed By: #### L IPID, ALT, TSH, BMP #### [facility] [address] [place] [address] Dr. Bertha Oglesby Cholesterol in LDL [Mass/Vol] 77.2 mg/dL Normal [facility] Comment on above: Performed By: #### L IPID, ALT, TSH, BMP #### [facility] [address] [place] [address] Dr. Bertha gOlesby Cholesterol.total /Cholesterol in HDL [Mass ratio] 3.6 {ratio} Normal [facility] Comment on above: Performed By: #### L IPID, ALT, TSH, BMP #### [facility] [address] [place] [address] Dr. Bertha Oglesby HDL NORMAL > or = 60 mg/dl - LO W CARDIOVASCULAR RISK <40 mg/dl - HIGH CARDIOVASCULAR RISK Normal [facility] Comment on above: Performed By: #### L IPID, ALT, TSH, BMP #### [facility] [address] [place] [address] Dr. Bertha Oglesby LDL CALC NORMAL SEE BELOW Normal [facility] Comment on above: Result Comment: <100 mg/dl OPTIMAL 100 - 129 mg/dl NEAR OR ABOVE OPTIMAL 130 - 159 mg/dl BORDERLINE HIGH 160 - 189 mg/dl HIGH >190 mg/dl VERY HIGH Performed By: #### L IPID, ALT, TSH, BMP #### [facility] [address] [place] [address] Dr. Bertha Oglesby Triglyceride [Mass/Vol] 149 mg/dL Normal <=150 [facility] Comment on above: Performed By: #### L IPID, ALT, TSH, BMP #### [facility] [address] [place] [address] Dr. Bertha Oglesby VLDL CALC 29.8 mg/dL Normal [facility] Comment on above: Performed By: #### L IPID, ALT, TSH, BMP #### [facility] [address] [place] [address] Dr. Bertha Oglesby PROF CHEM 8 (BAS METB)on Anion gap [Moles/Vol] 11.8 mmol/L Normal [facility] Comment on above: Performed By: #### L IPID, ALT, TSH, BMP #### [facility] [address] [place] [address] Dr. Bertha Oglesby Calcium [Mass/Vol] 8.7 mg/dL Normal 8.5-10.1 [facility] Comment on above: Performed By: #### L IPID, ALT, TSH, BMP #### [facility] [address] [place] [address] Dr. Bertha Oglesby Chloride [Moles/Vol] 105 mmol/L Normal 98-107 [facility] Comment on above: Performed By: #### L IPID, ALT, TSH, BMP #### [facility] [address] [place] [address] Dr. Bertha Oglesby CO2 [Moles/Vol] 28.4 mmol/L Normal 21.0-32.0 [facility] Comment on above: Performed By: #### L IPID, ALT, TSH, BMP #### [facility] [address] [place] [address] Dr. Bertha Oglesby Creatinine [Mass/Vol] 0.99 mg/dL Normal 0.70-1.30 [facility] Comment on above: Performed By: #### L IPID, ALT, TSH, BMP #### [facility] [address] [place] [address] Dr. Bertha Oglesby EGFR-AF BURKINAN >60 Normal >=60 [facility] Comment on above: Performed By: #### L IPID, ALT, TSH, BMP #### [facility] [address] [address] [address] Bertha Oglesby EGFR-NON AF BURKINAN >60 Normal >=60 [facility] Comment on above: Performed By: #### L IPID, ALT, TSH, BMP #### [facility] [address] [address] [address] Bertha Oglesby Glucose [Mass/Vol] 99 mg/dL Normal 74-106 [facility] Comment on above: Performed By: #### L IPID, ALT, TSH, BMP #### [facility] [address] [address] [address] Bertha Oglesby Potassium [Moles/Vol] 4.2 mmol/L Normal 3.5-5.1 [facility] Comment on above: Performed By: #### L IPID, ALT, TSH, BMP #### [facility] [address] [place] [address] Dr. Bertha Oglesby Sodium [Moles/Vol] 141 mmol/L Normal 136-145 [facility] Comment on above: Performed By: #### L IPID, ALT, TSH, BMP #### [facility] [address] [address] [address] Bertha Oglesby Urea nitrogen [Mass/Vol] 11.0 mg/dL Normal 7.0-18.0 [facility] Comment on above: Performed By: #### L IPID, ALT, TSH, BMP #### [facility] [address] [address] [address] Bertha Oglesby Urea nitrogen/Creatini ne [Mass ratio] 11.1 mg/mg Normal [facility] Comment on above: Performed By: #### L IPID, ALT, TSH, BMP #### [facility] [address] [address] [address] Bertha Oglesby RETICULOCYTEon 10-21-2022 RETIC 1.41 % Normal 0.60-3.10 [facility] Comment on above: Performed By: #### C BC, RETIC #### [facility] [address] [address] [address] Bertha Oglesby SGPTon 10-21-2022 ALT [Catalytic activity/Vol] 36 U/L Normal 16-63 [facility] Comment on above: Performed By: #### L IPID, ALT, TSH, BMP #### [facility] [address], [place] [address] Dr. Bertha Oglesby TSHon 10-21-2022 TSH 5.074 uIU/mL Critically high 0.358-3.74 0 [facility] Comment on above: Performed By: #### L IPID, ALT, TSH, BMP #### [facility] [address], [place] [address] Dr. Bertha Oglesby CBC W Auto Differential pane l (Bld)on 12-05-2021 Basophils (Bld) [#/Vol] 0.04 10*3/uL Normal <0.11 [facility] Comment on above: Order Comment: Speci men Type: BLOOD SPECIMEN Ordering Facility: [facility] Address: [address] [place] [address] Performed By: #### 5 7021-8 #### [facility] CLIA [id number] [address] [place] [id number] Basophils/100 WBC (Bld) 0.9 % Normal [facility] Comment on above: Order Comment: Speci men Type: BLOOD SPECIMEN Ordering Facility: [facility] Address: [address] [place] [address] Performed By: #### 5 7021-8 #### [facility] CLIA [id number] [address] [place] [id number] Differential cell count method Nom (Bld) Auto Normal [facility] Comment on above: Order Comment: Speci men Type: BLOOD SPECIMEN Ordering Facility: [facility] Address: [address] [place] [address] Performed By: #### 5 7021-8 #### [facility] CLIA [id number] [address] [place] [address] 45201 Eosinophils (Bld) [#/Vol] 0.10 10*3/uL Normal <0.46 [facility] Comment on above: Order Comment: Speci men Type: BLOOD SPECIMEN Ordering Facility: [facility] Address: [address] [place] [address] Performed By: #### 5 7021-8 #### [facility] CLIA [id number] [address] [place] [address] 51832 Eosinophils/100 WBC (Bld) 2.2 % Normal [facility] Comment on above: Order Comment: Speci men Type: BLOOD SPECIMEN Ordering Facility: [facility] Address: [address] [place] [address] Performed By: #### 5 7021-8 #### [facility] CLIA [id number] [address] [place] [address] 36353 Erythrocyte distribution width (RBC) [Ratio] 19.8 % High 11.5-15.0 [facility] Comment on above: Order Comment: Speci men Type: BLOOD SPECIMEN Ordering Facility: [facility] Address: [address] [place] [address] Performed By: #### 5 7021-8 #### [facility] CLIA [id number] [address] [place] [address] 25094 Hematocrit (Bld) [Volume fraction] 37.1 % Low 39.0-51.0 [facility] Comment on above: Order Comment: Speci men Type: BLOOD SPECIMEN Ordering Facility: [facility] Address: [address] [place] [address] Performed By: #### 5 7021-8 #### [facility] CLIA [id number] [address] [place] [address] 26102 Hemoglobin (Bld) [Mass/Vol] 11.4 g/dL Low 13.0-17.0 [facility] Comment on above: Order Comment: Speci men Type: BLOOD SPECIMEN Ordering Facility: [facility] Address: [address] [place] [address] Performed By: #### 5 7021-8 #### [facility] CLIA [id number] [address] [place] [address] 32163 IMMATURE GRAN % 0.2 % Normal [facility] Comment on above: Order Comment: Speci men Type: BLOOD SPECIMEN Ordering Facility: [facility] Address: [address] [place] [address] Performed By: #### 5 7021-8 #### [facility] CLIA [id number] [address] [place] [address] 33953 IMMATURE GRAN ABS <0.03 Normal <0.10 [facility] Comment on above: Order Comment: Speci men Type: BLOOD SPECIMEN Ordering Facility: [facility] Address: [address] [place] [address] Performed By: #### 5 7021-8 #### [facility] CLIA [id number] [address] [place] [address] 59776 Lymphocytes (Bld) [#/Vol] 1.15 10*3/uL Normal 1.00-4.00 [facility] Comment on above: Order Comment: Speci men Type: BLOOD SPECIMEN Ordering Facility: [facility] Address: [address] [place] [address] Performed By: #### 5 7021-8 #### [facility] CLIA [id number] [address] [place] [address] 79564 Lymphocytes/100 WBC (Bld) 24.9 % Normal [facility] Comment on above: Order Comment: Speci men Type: BLOOD SPECIMEN Ordering Facility: [facility] Address: [address] [place] [address] Performed By: #### 5 7021-8 #### [facility] CLIA [id number] [address] [place] [address] 58286 MCH (RBC) [Entitic mass] 27.8 pg Normal 26.0-34.0 [facility] Comment on above: Order Comment: Speci men Type: BLOOD SPECIMEN Ordering Facility: [facility] Address: [address] [place] [address] Performed By: #### 5 7021-8 #### [facility] CLIA [id number] [address] [place] [address] MCHC (RBC) [Mass/Vol] 30.7 g/dL Normal 30.5-36.0 [facility] Comment on above: Order Comment: Speci men Type: BLOOD SPECIMEN Ordering Facility: [facility] Address: [address] [place] [address] Performed By: #### 5 7021-8 #### [facility] CLIA [id number] [address] [place] [address] 65882 MCV (RBC) [Entitic vol] 90.5 fL Normal 80.0-100.0 [facility] Comment on above: Order Comment: Speci men Type: BLOOD SPECIMEN Ordering Facility: [facility] Address: [address] [place] [address] Performed By: #### 5 7021-8 #### [facility] CLIA [id number] [address] [place] [address] 12764 Monocytes (Bld) [#/Vol] 0.48 10*3/uL Normal <0.87 [facility] Comment on above: Order Comment: Speci men Type: BLOOD SPECIMEN Ordering Facility: [facility] Address: [address] [place] [address] Performed By: #### 5 7021-8 #### [facility] CLIA [id number] [address] [place] [address] 96538 Monocytes/100 WBC (Bld) 10.4 % Normal [facility] Comment on above: Order Comment: Speci men Type: BLOOD SPECIMEN Ordering Facility: [facility] Address: [address] [place] [address] Performed By: #### 5 7021-8 #### [facility] CLIA [id number] [address] [place] [address] 02381 Neutrophils (Bld) [#/Vol] 2.83 10*3/uL Normal 1.45-7.50 [facility] Comment on above: Order Comment: Speci men Type: BLOOD SPECIMEN Ordering Facility: [facility] Address: [address] [place] [place] [address] Performed By: #### 5 7021-8 #### [facility] CLIA [id number] [address] [place] [address] 49676 Neutrophils/100 WBC (Bld) 61.4 % Normal [facility] Comment on above: Order Comment: Speci men Type: BLOOD SPECIMEN Ordering Facility: [facility] Address: [address] [place] [address] Performed By: #### 5 7021-8 #### [facility] CLIA [id number] [address] [place] [address] 12104 Nucleated RBC (Bld) [#/Vol] 10*3/uL Normal <0.01 [facility] Comment on above: Order Comment: Speci men Type: BLOOD SPECIMEN Ordering Facility: [facility] Address: [address] [place] [address] Performed By: #### 5 7021-8 #### [facility] CLIA [id number] [address] [place] [address] 68947 Nucleated RBC/100 WBC (Bld) [Ratio] 0.0 /100 WBC Normal [facility] Comment on above: Order Comment: Speci men Type: BLOOD SPECIMEN Ordering Facility: [facility] Address: [address] [place] [address] Performed By: #### 5 7021-8 #### [facility] CLIA [id number] [address] [place] [address] 31956 Platelet mean volume (Bld) [Entitic vol] 11.2 fL Normal 9.0-12.7 [facility] Comment on above: Order Comment: Speci men Type: BLOOD SPECIMEN Ordering Facility: [facility] Address: [address] [place] [address] Performed By: #### 5 7021-8 #### [facility] CLIA [id number] [address] [place] [address] 96760 Platelets (Bld) [#/Vol] 221 10*3/uL Normal 150-400 [facility] Comment on above: Order Comment: Speci men Type: BLOOD SPECIMEN Ordering Facility: [facility] Address: [address] [place] [address] Performed By: #### 5 7021-8 #### [facility] CLIA [id number] [address] [place] [address] 09706 RBC (Bld) [#/Vol] 4.10 10*6/uL Low 4.20-6.00 [facility] Comment on above: Order Comment: Speci men Type: BLOOD SPECIMEN Ordering Facility: [facility] Address: [address] [place] [address] Performed By: #### 5 7021-8 #### [facility] CLIA [id number] [address] [place] [address] 52868 WBC (Bld) [#/Vol] 4.61 10*3/uL Normal 3.70-11.00 [facility] Comment on above: Order Comment: Speci men Type: BLOOD SPECIMEN Ordering Facility: [facility] Address: [address] [place] [address] Performed By: #### 5 7021-8 #### [facility] CLIA [id number] [address] [place] [address] 50562 CNOVSPon 12-05-2021 CNOVS Visit (SP) Office ([facility]) ARCHIE DUNCAN ([id number]) 1940 M Date Time Provider Department 12/05/21 10:45 AM JOSE A SOTOMAYOR During your visit today, we recorded the following information about you: Temperature Pulse Respiration Blood pressure 97.7 degrees 56/minute 16/minute 134/84 Weight Height 71.4 kg 1.74 m Jose A Sotomayor MD 12/05/2021 11:25 AM Signed HEMATOLOGY FOLLOW UP Elements in this clinic note that are critical to medical decision making have been carefully reviewed and included from my prior clinic note dated: October 24, 2021 December 05, 2021 PCP and other physicians involved in patient's care: Alberto Ram (PCP), Cullen Connolly (GI) DIGANOSIS Iron deficiency anemia HEMATOLOGICAL HISTORY: ? Prostate cancer diagnosed in 2016 with an initial PSA of 102 and Carmen 7+3. He was treated by external beam radiation and 2 years of ADT (leuprolide and bicalutamide) at [facility]. He completed ADT in June 2017. PSA <0.05 in September 2021. ? Patient has a history of iron deficiency anemia initial diagnosed in 2018. He had an EGD and colonoscopy (Dr. Cooper) that did not reveal any significant findings on EGD but he had diverticular disease. CBC in 2021 was notable for hemoglobin of 10.5 g/dL and ferritin of 9. He was referred to me in October 2021 for iron deficiency anemia and consideration of iron infusion. ? November 05, 2021 Monoferric 1000 mg ? November 10, 2021 EGD and colonoscopy (Dr. Connolly); EGD was normal; colonoscopy notable for internal hemorrhoids and diverticular disease; no obvious cause of bleed INTERVAL HISTORY: Archie comes for a follow up. He is here with his . Since last visit, he received a dose of monoferric and had scopes. Findings detailed above. He is here for follow-up CBC check. Unfortunately, his symptoms including mild aches in his legs and arthritis in hands has not improved since infusion. Overall doing well. ROS is negative except that mentioned in HPI PAST MEDICAL SURGICAL FAMILY AND SOCIAL HISTORY: He has a history of ? Prostate cancer, diagnosed 2016, details above ? Coronary artery disease, status post CABG ? Atrial fibrillation, on rivaroxaban ? Osteoarthritis ? Hypothyroidism ? Iron deficiency anemia Previous procedures include atrial ablation, coronary artery bypass graft, right shoulder scope and GI scopes. No previous substance abuse. Family history is without any hematological disease. At baseline, he is very independent and leads an active life. 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 MEDICATIONS AND ALLERGIES: Reviewed PHYSICAL EXAM BP 134/84 Pulse (!) 56 Temp 36.5 ?C (97.7 ?F) (Temporal) Resp 16 Ht 174 cm (5' 8.5 ) Wt 71.4 kg (157 lb 7.5 oz) SpO2 99% BMI 23.59 kg/m? Head atraumatic, no pallor or icterus, breathing comfortably, abdomen soft without distension or organomegaly, neuro grossly non-focal, skin without rash, extremities without swelling or inflammation [facility] Labs hemoglobin 11.4 hemoglobin 12.8, ferritin 79, iron saturation 29% hemoglobin 10.5, ferritin 9, saturation 10% hemoglobin 9.8, ferritin 18, TIBC 470 11-05-21 monoferric 1 g 11-19 hemoglobin 11.4, ferritin in process Scopes 11-10-21 EGD and colonoscopy notable for moderate diverticular disease and internal hemorrhoids ASSESSMENT AND RECOMMENDATIONS 81 male with iron deficiency anemia ? Iron deficiency anemia is likely multifactorial secondary to small GI losses (scopes showed hemorrhoids and diverticular disease) exacerbated by use of rivaroxaban and clopidogrel. He received a dose of Monoferric in October 2021 that resulted in improvement of hemoglobin. Continue monitoring ferritin routinely. Repeat check in 6 weeks. If patient becomes anemic again, additional testing such as scans, H pylori, celiac screen, and capsule endoscopy might be indicated. His non-specific symptoms such as leg pain do not seem to be related to the underlying iron deficiency. ? Prostate cancer: He will continue to follow with Dr. Ram for routine PSA checks. Jose A Sotomayor MD I spent a total of 20 minutes on the date of the service which included preparing to see the patient, [id number] patient care, completing clinical documentation, obtaining and/or reviewing separately obtained history, performing a medically appropriate examination, counseling and educating the patient/family/caregiver, ordering medications, tests, or procedures, independently interpreting results (not separately reported) and communicating results to the patient/family/caregiver. CC: Alberto Ram Referring Provider: JOSE A SOTOMAYOR [[id number]] Allergies As of Date: 12/05/2021 (No Known Allergies) Date Reviewed: 12/05/2021 Reviewed by: Pamella Houghtlen Ma - Fully Assessed Reason for Visit: (more content not included)... Normal [facility] Ferritin SerPl-mCncon 2021 Ferritin [Mass/Vol] 202.0 ng/mL Normal 30.3-565.7 [facility] Comment on above: Order Comment: Speci men Type: BLOOD SPECIMEN Ordering Facility: [facility] Address: [address] [place] [address] Performed By: #### 2 276-4, 17973-1 #### [facility] CLIA [id number] [address] [place] [address] [place] Iron and Iron binding capaci ty panelon 12-05-2021 Iron [Mass/Vol] 77 ug/dL Normal 41-186 [facility] Comment on above: Order Comment: Speci men Type: BLOOD SPECIMEN Ordering Facility: [facility] Address: [address] [place] [address] Performed By: #### 2 276-4, 03262-3 #### [facility] CLIA [id number] [address] [place] [address] [place] Iron binding capacity [Mass/Vol] 326 ug/dL Normal 232-386 [facility] Comment on above: Order Comment: Speci men Type: BLOOD SPECIMEN Ordering Facility: [facility] Address: [address] [place] [address] Performed By: #### 2 276-4, 49921-3 #### [facility] CLIA [id number] [address] [place] [address] [place] Iron/TIBC [Molar ratio] 23.6 % Normal 15.0-57.0 [facility] Comment on above: Order Comment: Speci men Type: BLOOD SPECIMEN Ordering Facility: 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 No FA available at this time. Allergies As of Date: 11/05/2021 (No Known Allergies) Date Reviewed: 10/24/2021 Reviewed by: Pamella Matson Ma - Fully Assessed Reason for Visit: Benefits Investigation [2216] Prescriptions as of 11/05/2021 - brimonidine (ALPHAGAN) 0.2 % ophthalmic solution brimonidine 0.2 % eye drops - omega-3 fatty acids/fish oil (FISH OIL-OMEGA-3 FATTY ACIDS) 300-1,000 mg cap Take 2 g by mouth. - travoprost (TRAVATAN Z) 0.004 % ophthalmic drops Travatan Z 0.004 % eye drops - Cholecalciferol, Vitamin D3, 50 mcg (2,000 unit) cap Take 2,000 Units by mouth. - MAGNESIUM CHLORIDE ORAL Take by mouth. - atorvastatin (LIPITOR) 80 mg tablet Take 80 mg by mouth once daily. - rivaroxaban (XARELTO) 20 mg tablet Take 20 mg by mouth daily with dinner. - clopidogrel (PLAVIX) 75 mg tablet Take 75 mg by mouth once daily. - donepezil (ARICEPT) 5 mg tablet Take 5 mg by mouth daily at bedtime. - metoprolol tartrate, short acting, (LOPRESSOR) 25 mg tablet Take 25 mg by mouth twice daily. Take half a tab BID Problem List As Of Date 11/05/2021 Noted Resolved Iron deficiency anemia due to chronic blood los*10/24/2021 Encounter Status:Closed by CLINTON CHRISTOPHER MAGGIE, MATTHEW Galvez on 11/05/21 Normal [facility] CBC W Auto Differential pane l (Bld)on 10-24-2021 Basophils (Bld) [#/Vol] 0.04 10*3/uL Normal <0.11 [facility] Comment on above: Order Comment: Speci men Type: BLOOD SPECIMEN Ordering Facility: [facility] Address: [address] [place] [address] Performed By: #### 5 7021-8 #### [facility] CLIA [id number] [address] [place] [address] 32187 Basophils/100 WBC (Bld) 0.8 % Normal [facility] Comment on above: Order Comment: Speci men Type: BLOOD SPECIMEN Ordering Facility: [facility] Address: [address] [place] [address] Performed By: #### 5 7021-8 #### [facility] CLIA [id number] [address] [place] [address] 53887 Differential cell count method Nom (Bld) Auto Normal [facility] Comment on above: Order Comment: Speci men Type: BLOOD SPECIMEN Ordering Facility: [facility] Address: [address] [place] [address] Performed By: #### 5 7021-8 #### [facility] CLIA [id number] [address] [place] [address] 01397 Eosinophils (Bld) [#/Vol] 0.20 10*3/uL Normal <0.46 [facility] Comment on above: Order Comment: Speci men Type: BLOOD SPECIMEN Ordering Facility: [facility] Address: [address] [place] [address] Performed By: #### 5 7021-8 #### [facility] CLIA [id number] [address] [place] [address] Eosinophils/100 WBC (Bld) 3.9 % Normal [facility] Comment on above: Order Comment: Speci men Type: BLOOD SPECIMEN Ordering Facility: [facility] Address: [address] [place] [address] Performed By: #### 5 7021-8 #### [facility] CLIA [id number] [address] [place] [address] 98502 Erythrocyte distribution width (RBC) [Ratio] 13.4 % Normal 11.5-15.0 [facility] Comment on above: Order Comment: Speci men Type: BLOOD SPECIMEN Ordering Facility: [facility] Address: [address] [place] [address] Performed By: #### 5 7021-8 #### [facility] CLIA [id number] [address] [place] [address] 55008 Hematocrit (Bld) [Volume fraction] 32.6 % Low 39.0-51.0 [facility] Comment on above: Order Comment: Speci men Type: BLOOD SPECIMEN Ordering Facility: [facility] Address: [address] [place] [address] Performed By: #### 5 7021-8 #### [facility] CLIA [id number] [address] [place] [address] 01539 Hemoglobin (Bld) [Mass/Vol] 9.8 g/dL Low 13.0-17.0 [facility] Comment on above: Order Comment: Speci men Type: BLOOD SPECIMEN Ordering Facility: [facility] Address: [address] [place] [address] Performed By: #### 5 7021-8 #### [facility] CLIA [id number] [address] [place] [address] 86418 IMMATURE GRAN % 0.4 % Normal [facility] Comment on above: Order Comment: Speci men Type: BLOOD SPECIMEN Ordering Facility: [facility] Address: [address] [place] [address] Performed By: #### 5 7021-8 #### [facility] CLIA [id number] [address] [place] [address] 26166 IMMATURE GRAN ABS <0.03 Normal <0.10 [facility] Comment on above: Order Comment: Speci men Type: BLOOD SPECIMEN Ordering Facility: [facility] Address: [address] [place] [address] Performed By: #### 5 7021-8 #### [facility] CLIA [id number] [address] [place] [address] 15550 Lymphocytes (Bld) [#/Vol] 1.35 10*3/uL Normal 1.00-4.00 [facility] Comment on above: Order Comment: Speci men Type: BLOOD SPECIMEN Ordering Facility: [facility] Address: [address] [place] [address] Performed By: #### 5 7021-8 #### [facility] CLIA [id number] [address] [place] [address] 74586 Lymphocytes/100 WBC (Bld) 26.3 % Normal [facility] Comment on above: Order Comment: Speci men Type: BLOOD SPECIMEN Ordering Facility: [facility] Address: [address] [place] [address] Performed By: #### 5 7021-8 #### [facility] CLIA [id number] [address] [place] [address] 57860 MCH (RBC) [Entitic mass] 26.1 pg Normal 26.0-34.0 [facility] Comment on above: Order Comment: Speci men Type: BLOOD SPECIMEN Ordering Facility: [facility] Address: [address] [place], [place] [address] Performed By: #### 5 7021-8 #### [facility] CLIA [id number] [address] [place] [address] 86955 MCHC (RBC) [Mass/Vol] 30.1 g/dL Low 30.5-36.0 [facility] Comment on above: Order Comment: Speci men Type: BLOOD SPECIMEN Ordering Facility: [facility] Address: [address] [place] [address] Performed By: #### 5 7021-8 #### [facility] CLIA [id number] [address] [place] [address] 60650 MCV (RBC) [Entitic vol] 86.7 fL Normal 80.0-100.0 [facility] Comment on above: Order Comment: Speci men Type: BLOOD SPECIMEN Ordering Facility: [facility] Address: [address] [place] [address] Performed By: #### 5 7021-8 #### [facility] CLIA [id number] [address] [place] [address] 52669 Monocytes (Bld) [#/Vol] 0.73 10*3/uL Normal <0.87 [facility] Comment on above: Order Comment: Speci men Type: BLOOD SPECIMEN Ordering Facility: [facility] Address: [address] [place] [address] Performed By: #### 5 7021-8 #### [facility] CLIA [id number] [address] [place] [address] 91629 Monocytes/100 WBC (Bld) 14.2 % Normal [facility] Comment on above: Order Comment: Speci men Type: BLOOD SPECIMEN Ordering Facility: [facility] Address: [address] [place] [address] Performed By: #### 5 7021-8 #### [facility] CLIA [id number] [address] [place] [address] 39436 Neutrophils (Bld) [#/Vol] 2.80 10*3/uL Normal 1.45-7.50 [facility] Comment on above: Order Comment: Speci men Type: BLOOD SPECIMEN Ordering Facility: [facility] Address: [address] [place], [place] [address] Performed By: #### 5 7021-8 #### [facility] CLIA [id number] [address] [place] [address] 54320 Neutrophils/100 WBC (Bld) 54.4 % Normal [facility] Comment on above: Order Comment: Speci men Type: BLOOD SPECIMEN Ordering Facility: [facility] Address: [address] Performed By: #### 5 7021-8 #### [facility] CLIA [id number] [address] [place] [address] 09241 Nucleated RBC (Bld) [#/Vol] 10*3/uL Normal <0.01 [facility] Comment on above: Order Comment: Speci men Type: BLOOD SPECIMEN Ordering Facility: [facility] Address: [address] [place], [place] [address] Performed By: #### 5 7021-8 #### [facility] CLIA [id number] [address] [place] [address] 19216 Nucleated RBC/100 WBC (Bld) [Ratio] 0.0 /100 WBC Normal [facility] Comment on above: Order Comment: Speci men Type: BLOOD SPECIMEN Ordering Facility: [facility] Address: [address] [place], [place] [id number] Performed By: #### 5 7021-8 #### [facility] CLIA [id number] [address] [place] [address] 03148 Platelet mean volume (Bld) [Entitic vol] 10.3 fL Normal 9.0-12.7 [facility] Comment on above: Order Comment: Speci men Type: BLOOD SPECIMEN Ordering Facility: [facility] Address: [address] Performed By: #### 5 7021-8 #### [facility] CLIA [id number] [address] [place] [address] 12797 Platelets (Bld) [#/Vol] 282 10*3/uL Normal 150-400 [facility] Comment on above: Order Comment: Speci men Type: BLOOD SPECIMEN Ordering Facility: [facility] Address: [address] [place], [place] [address] Performed By: #### 5 7021-8 #### [facility] CLIA [id number] [address] [place] [address] 36317 RBC (Bld) [#/Vol] 3.76 10*6/uL Low 4.20-6.00 [facility] Comment on above: Order Comment: Speci men Type: BLOOD SPECIMEN Ordering Facility: [facility] Address: [address] [place] [address] Performed By: #### 5 7021-8 #### [facility] CLIA [id number] [address] [place], [place] [address] WBC (Bld) [#/Vol] 5.14 10*3/uL Normal 3.70-11.00 [facility] Comment on above: Order Comment: Speci men Type: BLOOD SPECIMEN Ordering Facility: [facility] Address: [address] [place] [address] Performed By: #### 5 7021-8 #### [facility] CLIA [id number] [address] [place], [place] [address] Abs Immature Gran <0.03 <0.10 k/uL [facility] Basophils (Bld) [#/Vol] 0.04 10*3/uL <0.11 k/uL [facility] Basophils/100 WBC (Bld) 0.8 % [facility] Differential cell count method Nom (Bld) Auto [facility] Eosinophils (Bld) [#/Vol] 0.20 10*3/uL <0.46 k/uL [facility] Eosinophils/100 WBC (Bld) 3.9 % [facility] Erythrocyte distribution width (RBC) [Ratio] 13.4 % 11.5 - 15.0 % [facility] Hematocrit (Bld) [Volume fraction] 32.6 % Low 39.0 - 51.0 % [facility] Hemoglobin (Bld) [Mass/Vol] 9.8 g/dL Low 13.0 - 17.0 g/dL [facility] Immature Gran % 0.4 % [facility] Lymphocytes (Bld) [#/Vol] 1.35 10*3/uL 1.00 - 4.00 k/uL [facility] Lymphocytes/100 WBC (Bld) 26.3 % [facility] MCH (RBC) [Entitic mass] 26.1 pg 26.0 - 34.0 pg [facility] MCHC (RBC) [Mass/Vol] 30.1 g/dL Low 30.5 - 36.0 g/dL [facility] MCV (RBC) [Entitic vol] 86.7 fL 80.0 - 100.0 fL [facility] Monocytes (Bld) [#/Vol] 0.73 10*3/uL <0.87 k/uL [facility] Monocytes/100 WBC (Bld) 14.2 % [facility] Neutrophils (Bld) [#/Vol] 2.80 10*3/uL 1.45 - 7.50 k/uL [facility] Neutrophils/100 WBC (Bld) 54.4 % [facility] Nucleated RBC (Bld) [#/Vol] 10*3/uL <0.01 k/uL [facility] Nucleated RBC/100 WBC (Bld) [Ratio] 0.0 /100 WBC [facility] Platelet mean volume (Bld) [Entitic vol] 10.3 fL 9.0 - 12.7 fL [facility] Platelets (Bld) [#/Vol] 282 10*3/uL 150 - 400 k/uL [facility] RBC (Bld) [#/Vol] 3.76 10*6/uL Low 4.20 - 6.00 m/uL [facility] WBC (Bld) [#/Vol] 5.14 10*3/uL 3.70 - 11.00 k/uL [facility] CNOVSPon 10-24-2021 CNOVSP Visit (SP) Office ([facility]) ARCHIE DUNCAN ([id number]) 1940 M Date Time Provider Department 10/24/21 11:00 AM JOSE A SOTOMAYOR During your visit today, we recorded the following information about you: Temperature Pulse Respiration Blood pressure 97.8 degrees 61/minute 16/minute 151/81 Weight Height 74.1 kg 1.74 m Jose A Sotomayor MD 10/24/2021 12:30 PM Signed HEMATOLOGY INITIAL CONSULTATION October 24, 2021 REFERRAL REQUESTED BY: Alberto Ram PCP and other physicians involved in patient's care: Alberto Ram (PCP) REASON FOR CONSULTATION: Iron deficiency anemia HEMATOLOGICAL HISTORY: ? Prostate cancer diagnosed in 2016 with an initial PSA of 102 and [place] 7+3. He was treated by external beam radiation and 2 years of ADT (leuprolide and bicalutamide) at [facility]. He completed ADT in June 2017. PSA nam < 0.05. ? Patient has a history of iron deficiency anemia initial diagnosed in 2018. He had an EGD and colonoscopy (Dr. Cooper) that did not reveal any significant findings on EGD but he had diverticular disease. He was referred to me in October 2021 for iron deficiency anemia and consideration of iron infusion HPI: This is a 81-year-old male who comes to clinic for evaluation of iron deficiency anemia. Histological history is as detailed above. He is here with his . Briefly, patient has a history of iron deficiency anemia that was noted in 2018. He had an EGD and colonoscopy that was notable for diverticulosis. Patient does not recollect being on oral or intravenous iron. No previous transfusion history. He has very minimal symptoms and the reason he sought initial medical attention was for leg cramps. CBC earlier this year was notable for hemoglobin of 10.5 g/dL and ferritin of 9. He does endorse a history of hemorrhoids and occasional bright red blood per rectum. He has a history of prostate cancer and was treated with radiation and androgen deprivation for 2 years. He completed his treatments and 2018. PSA remains undetectable. He has been scheduled for EGD and colonoscopy on November 10, 2021. At baseline, he is very independent and leads an active life. 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 ROS is negative except that mentioned in HPI PAST MEDICAL SURGICAL FAMILY AND SOCIAL HISTORY: He has a history of ?Prostate cancer, diagnosed 2016, details above ?Coronary artery disease, status post CABG ?Atrial fibrillation, on rivaroxaban ?Osteoarthritis ? Hypothyroidism ? Iron deficiency anemia Previous procedures include atrial ablation, coronary artery bypass graft, right shoulder scope and GI scopes. No previous substance abuse. Family history is without any hematological disease. At baseline, he is very independent and leads an active life. 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 MEDICATIONS AND ALLERGIES: Reviewed PHYSICAL EXAM BP 151/81 Pulse 61 Temp 36.6 ?C (97.8 ?F) (Temporal) Resp 16 Ht 174 cm (5' 8.5 ) Wt 74.1 kg (163 lb 6.4 oz) SpO2 99% BMI 24.48 kg/m? Head atraumatic, no pallor, icterus or lymphadenopathy, lungs clear to auscultation, heart sounds regular, abdomen soft without distension or organomegaly, neuro grossly non-focal, skin without rash, extremities without swelling LABORATORY, IMAGING AND PATHOLOGY hemoglobin 11.4 hemoglobin 12.8, ferritin 79, iron saturation 29% hemoglobin 10.5, ferritin 9, saturation 10% PSA <0.05 in September 2021 ASSESSMENT AND RECOMMENDATIONS 81 male with iron deficiency anemia Iron deficiency anemia is likely secondary to GI losses. He has scopes scheduled for November 10, 2021. His symptoms related to anemia are minimal. I discussed either a trial of oral iron and proceeding to parenteral iron should he develop side effects or intolerance. Given his suspected GI bleeding and preference, we will opt for a dose of Monoferric in 2 weeks. I will see him back in 6 weeks for a repeat assessment of iron parameters. He will continue to follow with Dr. Ram for routine PSA checks. Jose A Sotomayor MD I spent a total of 50 minutes on the date of the service which included preparing to see the patient, clnv-ic-furn patient care, completing clinical documentation, obtaining and/or reviewing separately obtained history, performing a medically appropriate examination, counseling and educating the patient/family/caregiver, ordering medications, tests, or procedures, independently interpreting results (not separately reported) and communicating results to the patient/family/caregiver. CC: Alberto Ram Referring Provider: ALBERTO RAM [[id number]] Allergies As of Date: 10/24/2021 (No Known Allergies) Date Reviewed: 10/24/2021 Reviewed by: Pamella Matson Ma - Fully Assessed Reason for Visit: Anemia [6] Primary Visit Diagnosis:Iron deficiency anemia due to chronic b (more content not included)... Normal [facility] metabolic 2000 panelon 10-24-2021 Albumin [Mass/Vol] 4.6 g/dL Normal 3.9-4.9 [facility] Comment on above: Order Comment: Speci men Type: BLOOD SPECIMEN Ordering Facility: [facility] Address: [address] [address] Performed By: #### 2 4323-8 #### [facility] CLIA [id number] [address] [place] [address] ALP [Catalytic activity/Vol] 97 U/L Normal 38-113 [facility] Comment on above: Order Comment: Speci men Type: BLOOD SPECIMEN Ordering Facility: [facility] Address: [address] [place] [address] Performed By: #### 2 4323-8 #### [facility] CLIA [id number] [address] [place] [address] 09234 ALT [Catalytic activity/Vol] 16 U/L Normal 10-54 [facility] Comment on above: Order Comment: Speci men Type: BLOOD SPECIMEN Ordering Facility: [facility] Address: [address] [place] [address] Performed By: #### 2 4323-8 #### [facility] CLIA [id number] [address] [place] [address] 18040 Anion gap [Moles/Vol] 12 mmol/L Normal 9-18 [facility] Comment on above: Order Comment: Speci men Type: BLOOD SPECIMEN Ordering Facility: [facility] Address: [address] Performed By: #### 2 4323-8 #### [facility] CLIA [id number] [address] [place] [address] 51185 AST [Catalytic activity/Vol] 28 U/L Normal 14-40 [facility] Comment on above: Order Comment: Speci men Type: BLOOD SPECIMEN Ordering Facility: [facility] Address: [address] [place] [address] Performed By: #### 2 4323-8 #### [facility] CLIA [id number] [address] [place] [address] 00697 Bilirubin [Mass/Vol] 0.3 mg/dL Normal 0.2-1.3 [facility] Comment on above: Order Comment: Speci men Type: BLOOD SPECIMEN Ordering Facility: [facility] Address: [address] [place] [address] Performed By: #### 2 4323-8 #### [facility] CLIA [id number] [address] [place] [address] 81232 Calcium [Mass/Vol] 9.7 mg/dL Normal 8.5-10.2 [facility] Comment on above: Order Comment: Speci men Type: BLOOD SPECIMEN Ordering Facility: [facility] Address: [address] [place] [address] Performed By: #### 2 4323-8 #### [facility] CLIA [id number] [address] [place] [address] 75640 Chloride [Moles/Vol] 105 mmol/L Normal 97-105 [facility] Comment on above: Order Comment: Speci men Type: BLOOD SPECIMEN Ordering Facility: [facility] Address: [address] [place] [address] Performed By: #### 2 4323-8 #### [facility] CLIA [id number] [address] [place] [address] 69927 CO2 [Moles/Vol] 24 mmol/L Normal 22-30 [facility] Comment on above: Order Comment: Speci men Type: BLOOD SPECIMEN Ordering Facility: [facility] Address: [address] [place] [address] Performed By: #### 2 4323-8 #### [facility] CLIA [id number] [address] [place] [address] 71892 Creatinine [Mass/Vol] 1.04 mg/dL Normal 0.73-1.22 [facility] Comment on above: Order Comment: Speci men Type: BLOOD SPECIMEN Ordering Facility: [facility] Address: [address] [place] [address] Performed By: #### 2 4323-8 #### [facility] CLIA [id number] [address] [place] [address] ESTIMATED GLOMERULAR FILTRATION RATE 73 mL/min/1.73m??? Normal >=60 [facility] Comment on above: Order Comment: Aletha whitaker Type: BLOOD SPECIMEN Ordering Facility: [facility] Address: [address] [place] [address] Result Comment: Courtney mated Glomerular Filtration Rate (eGFR) is calculated using the 2020 CKD-EPI creatinine equation. This equation utilizes serum creatinine, sex, and age as parameters. The creatinine assay has traceable calibration to isotope dilution-mass spectrometry. Refer to KDIGO guidelines for clinical interpretation. In patients with unstable renal function, e.g. those with acute kidney injury, the eGFR may not accurately reflect actual GFR. Performed By: #### 2 4323-8 #### [facility] CLIA [id number] [address] [place] [address] 45816 Glucose [Mass/Vol] 108 mg/dL High 74-99 [facility] Comment on above: Order Comment: Aletha whitaker Type: BLOOD SPECIMEN Ordering Facility: [facility] Address: [address] [place] [address] Result Comment: The [place] Diabetes Association (ADA) provides guidance for cutoff [...] Standards of Medical Care in Diabetes 2016, [place] [employer]. Diabetes Care. 2016.39(Suppl 1). Performed By: #### 2 4323-8 #### [facility] CLIA [id number] [address] [place] [address] Potassium [Moles/Vol] 4.1 mmol/L Normal 3.7-5.1 [facility] Comment on above: Order Comment: Speci men Type: BLOOD SPECIMEN Ordering Facility: [facility] Address: [address] [address] Performed By: #### 2 4323-8 #### [facility] CLIA [id number] [address] [place] [address] 06689 Protein [Mass/Vol] 6.8 g/dL Normal 6.3-8.0 [facility] Comment on above: Order Comment: Speci men Type: BLOOD SPECIMEN Ordering Facility: [facility] Address: [address] [place] [address] Performed By: #### 2 4323-8 #### [facility] CLIA [id number] [address] [place] [address] 85533 Sodium [Moles/Vol] 141 mmol/L Normal 136-144 [facility] Comment on above: Order Comment: Speci men Type: BLOOD SPECIMEN Ordering Facility: [facility] Address: [address] [place] [address] Performed By: #### 2 4323-8 #### [facility] CLIA [id number] [address] [place] [address] 69243 Urea nitrogen [Mass/Vol] 11 mg/dL Normal 9-24 [facility] Comment on above: Order Comment: Speci men Type: BLOOD SPECIMEN Ordering Facility: [facility] Address: [address] [place] [address] Performed By: #### 2 4323-8 #### [facility] CLIA [id number] [address] [place] [address] 80028 Albumin [Mass/Vol] 4.6 g/dL 3.9 - 4.9 g/dL [facility] ALP [Catalytic activity/Vol] 97 U/L 38 - 113 U/L [facility] ALT [Catalytic activity/Vol] 16 U/L 10 - 54 U/L [facility] Anion gap [Moles/Vol] 12 mmol/L 9 - 18 mmol/L [facility] AST [Catalytic activity/Vol] 28 U/L 14 - 40 U/L [facility] Bilirubin [Mass/Vol] 0.3 mg/dL 0.2 - 1.3 mg/dL [facility] Calcium [Mass/Vol] 9.7 mg/dL 8.5 - 10.2 mg/dL [facility] Chloride [Moles/Vol] 105 mmol/L 97 - 105 mmol/L [facility] CO2 [Moles/Vol] 24 mmol/L 22 - 30 mmol/L [facility] Creatinine [Mass/Vol] 1.04 mg/dL 0.73 - 1.22 mg/dL [facility] Estimated Glomerular Filtration Rate 73 mL/min/1.73m >=60 mL/min/1.7 3m [facility] Glucose [Mass/Vol] 108 mg/dL High 74 - 99 mg/dL [facility] Potassium [Moles/Vol] 4.1 mmol/L 3.7 - 5.1 mmol/L [facility] Protein [Mass/Vol] 6.8 g/dL 6.3 - 8.0 g/dL [facility] Sodium [Moles/Vol] 141 mmol/L 136 - 144 mmol/L [facility] Urea nitrogen [Mass/Vol] 11 mg/dL 9 - 24 mg/dL [facility] FERRITIN BLDon 10-24-2021 Ferritin [Mass/Vol] 18.1 ng/mL Low 30.3-565.7 [facility] Comment on above: Order Comment: Speci men Type: BLOOD SPECIMEN Ordering Facility: [facility] Address: [address] [place] [address] Performed By: #### F ERR, IRON #### [facility] CLIA [id number] [address] [place] [address] [place] IRON + TIBCon 10-24-2021 Iron [Mass/Vol] 32 ug/dL Low 41-186 [facility] Comment on above: Order Comment: Speci men Type: BLOOD SPECIMEN Ordering Facility: [facility] Address: [address] [place] [address] Performed By: #### F ERR, IRON #### [facility] CLIA [id number] [address] [place] [address] [place] Iron binding capacity [Mass/Vol] 470 ug/dL High 232-386 [facility] Comment on above: Order Comment: Speci men Type: BLOOD SPECIMEN Ordering Facility: [facility] Address: [address] [place] [address] Performed By: #### F ERR, IRON #### [facility] CLIA [id number] [address] [place] [address] [facility] Iron/TIBC [Molar ratio] 7 % Low 15-57 [facility] Comment on above: Order Comment: Speci men Type: BLOOD SPECIMEN Ordering Facility: [facility] Address: [address] [place] [address] Performed By: #### F ERR, IRON #### [facility] CLIA [id number] [address] [place] [address] [facility] Lab Reportson 09-25-2021 Lab Reports [id number]:[address] [facility] Provider Letteron 01-01-2021 Provider Letter (Inserted Image. Solange ble to display) January 01, 2021 ARCHIE DUNCAN [address] [place] [id number] ARCHIE DUNCAN 1940 Dear Mr. Duncan , This letter is to inform you the providers of [facility], [facility]/ [facility] will no longer be responsible for your routine medical care due to non compliance. Emergency care only will be provided for the thirty (30) days following this letter. During this time period we suggest that you find another physician for your medical needs. A listing of area physicians can be found on [facility]'s website at [email or web address] or you may contact your health plan. We will be glad to forward your records to your new physician as long as we receive a signed release of records form. Sincerely, Dr. Ayan Marin [facility] Patient Correspondenceon Patient Correspondence [id number]:127 Normal [facility] APTTon 02-16-2018 aPTT Coag time (Bld) 77.9 s Critically high 25.0-35.0 [facility] Comment on above: Order Comment: No: D o not add to previous draw Result Comment: ALL RESULTS MUST BE INTERPRETED WITH RESPECT TO BLOOD DRAWING ARTIFACTOR DILUTION ERROR OF ANTICOAGULANT AT THE TIME OF SAMPLING.THE APTT SHOULD NOT BE USED TO MONITOR UNFRACTIONATED HEPARIN THERAPY, THIS LABORATORY NO LONGER HAS AN ESTABLISHED THERAPEUTIC RANGE BASEDON THE APTT. IT IS RECOMMENDED THAT THE [facility] - HEPARIN ASSAY (ANTI-XAACTIVITY) BE USED FOR THIS PURPOSE.RESULT CALLED TO LIAT DOTSON RN 0711CLINICAL SIGNIFICANCE OF THE PTT RESULT IS QUESTIONABLE IN THE PRESENCEOF HEPARIN. Performed By: #### 5 6101, 27884, 54960 ####[facility] CBC COMPLETE BLOOD COUNTon 0 02-16-2018 Erythrocyte distribution width Auto Ratio (RBC) 12.8 % Normal 11.5-15.0 [facility] Comment on above: Order Comment: No: D o not add to previous draw Performed By: #### 5 0608 ####[place] [address] [address] Hematocrit Auto Volume Fraction (Bld) 33.6 % Low 39.0-50.0 [facility] Comment on above: Order Comment: No: D o not add to previous draw Performed By: #### 5 0608 ####[facility] Hemoglobin mass conc (Bld) 10.6 g/dL Low 13.0-17.0 [facility] Comment on above: Order Comment: No: D o not add to previous draw Performed By: #### 5 0608 ####[address] [place] [address], [facility] MCH Auto Entitic mass (RBC) 29.9 pg Normal 27.0-33.0 [facility] Comment on above: Order Comment: No: D o not add to previous draw Performed By: #### 5 0608 ####[facility]3000 [facility] MCHC Auto mass conc (RBC) 31.5 g/dL Low 32.0-35.0 [facility] Comment on above: Order Comment: No: D o not add to previous draw Performed By: #### 5 0608 ####[facility] MCV Auto Entitic volume (RBC) 94.9 fL Normal 82.0-98.0 [facility] Comment on above: Order Comment: No: D o not add to previous draw Performed By: #### 5 0608 ####[facility] Nucleated RBC/100 WBC Ratio (Bld) 0 % Normal 0-0 [facility] Comment on above: Order Comment: No: D o not add to previous draw Performed By: #### 5 0608 ####[facility]3000 [facility].[address] PLAT CNT 189 10*3/uL Normal 150-400 [facility] Comment on above: Order Comment: No: D o not add to previous draw Performed By: #### 5 0608 ####[facility] [facility] RBC Auto #/vol (Bld) 3.54 10*6/uL Low 4.20-5.70 [facility] Comment on above: Order Comment: No: D o not add to previous draw Performed By: #### 5 0608 ####[facility] [place] [address] WBC Auto #/vol (Bld) 6.78 10*3/uL Normal 4.00-10.60 [facility] Comment on above: Order Comment: No: D o not add to previous draw Performed By: #### 5 0608 ####[place] [address] [place] [address], [facility] Cardiovascular Lab Reporton 02-16-2018 Cardiovascular Lab Report [facility] Patient Name: Archie Duncan [facility] MR #: [id number] Physician: Satnam Cohen of [facility] Service Date: 02/15/2018Division of Birthdate: 2Cardiology Room #: 3CD [id number] [facility] [id number] [facility], [place] [address]Deksh Fax Cardiovascular Laboratory ReportINDICATION: This is a patient of mine from [place]. He has had atrialflutter, which has been refractory to drug treatment. I saw him recentlyin the office, spoke with he and his about options, which would befurther cardioversion and antiarrhythmic agent or radiofrequency ablation.They elected for ablation. He comes and baseline EKG shows common atrialflutter. Next, he has been holding 1 dose of Xarelto. PROCEDURE: Next, hewas brought to the EP lab sterilely prepped and draped. He was givenconscious sedation, local anesthesia was provided by lidocaine. Next,initially using the [employer], venous access was achieved with 2 sheaths inthe right femoral vein. and * arabic sheaths were placed. A duodecapolar catheter was placed in the high right atrium along the lateralright atrium. I attempted to maneuver thedistal decapoles of the catheterinto the coronary sinus, but was unable to do so. Another sheath wasplaced. Another 7-Kiswahili sheath and catheter was placed in the coronarysinus and coronary sinus recordings were made. Next, the patient was inatrial flutter with a cycle length of approximately 210 milliseconds.Heparin 5000 units was administered intravenously Next, the sequence xtenorz-ig-mca in the right atrium and then ncuaj-co-pwzk. The tachycardiawas paced and entrained from the right and the left atrium. The postpacing interval on the left atrium was approximately 320 milliseconds andfrom the right atrium approximately 230 with tachycardia 210-220milliseconds indicating the circuit in the right atrium. Next, anablation catheter was placed in the right atrium was mapped and the cyclelength of the tachycardia was within the right atrium. Next, the HISbundle was marked and an anatomic drawing was made of the right atrium.Next, catheter ablation was then done from the tricuspid annulus down tothe inferior vena cava. An irrigated ablation catheter at 30 mack wasutilized. Contact force was monitored. Next, a complete line was made,which terminated the tachycardia into sinus rhythm. Next, at that point,a few lesions were placed at areas where I had concern about lower contactforce. Next, at that point, using both the coronary sinus catheter and thelateral right atrial catheter and using the ablation catheter,bidirectional block was noted across the isthmus. Next, the AV intervalafter ablation was approximately 150 milliseconds. Next, there were noapparent complications. He was in sinus bradycardia at termination of theprocedure Sheaths will be pulled in recoveryASSESSMENT:1. Underlying atrial flutter.2. Use of fluoroscopy, 32 minutes.3. Conscious sedation.4. Catheter mapping.5. Noncontact mapping with the Carto system.6. Identification of the HIS bundle location.7. Radiofrequency ablation for atrial flutter with termination of the tachycardia and demonstrated bidirectional block.8. Patient in sinus bradycardia at termination of procedure9. Patients b leslie dose will be reduced. Patient will be maintainedon intravenous heparin overnite and Xarelto restarted before dischargeElectronically Signed by:Satnam Mahan M.D. 02/16/2018 02:45 P Satnam Mahan M.D.Date Dict: 02/15/2018/12:04 P/Satnam Mahan M.D.Date Trans: 02/16/2018 03:18 [id number]: Alberto Ram D.O. [address] [place] [address] A [facility] [id number] [facility] PROTHROMBIN TIMEon 08-29-201 8 INR Coag RelTime (PPP) 1.15 {INR} Normal 0.91-1.16 [facility] Comment on above: Result Comment: ACCC P RECOMMENDED INR FOR WARFARIN THERAPY CONDITION INRPROPHYLAXIS OF VENOUS THROMBOSIS 2-3(HIGH-RISK SURGERY)TREATMENT OF VENOUS THROMBOSIS 2-3TREATMENT OF PULMONARY EMBOLISM 2-3PREVENTION OF SYSTEMIC EMBOLISM: 2-3 ACUTE MYOCARDIAL INFARCTION TISSUE HEART VALVES VALVULAR HEART DISEASE ATRIAL FIBRILLATION RECURRENT SYSTEMIC EMBOLISMMECHANICAL HEART VALVE 2.5-3.5 FROM: ORAL ANTICOAGULANTS. MECHANISM OF ACTION, CLINICALEFFECTIVENESS, AND OPTIMAL THERAPEUTIC RANGE. [id number].RESULT CALLED TO LIAT DOTSON RN 0711 Performed By: #### 5 6101, [id number], [id number] ####[facility] [facility] Prothrombin time (PT) Coag time (PPP) 14.7 s Normal 12.3-14.8 [facility] Comment on above: Result Comment: ALL RESULTS MUST BE INTERPRETED WITH RESPECT TO BLOOD DRAWING ARTIFACTOR DILUTION ERROR OF ANTICOAGULANT AT THE TIME OF SAMPLING.RESULT CALLED TO LIAT DOTSON RN 0711 Performed By: #### 5 6101, [id number], [id number] ####[facility] [facility].[address] UFH HEPARIN ASSAYon 02-17-20 18 UNFRACTIONATED HEPARIN 0.53 IU/mL Normal 0.30-0.70 [facility] Comment on above: Order Comment: ADDED PER PROTOCOL Result Comment: Deysi roxaban and Apixaban will interfere with the anti Xa assay used tomonitor UFH and LMWH. Performed By: #### 5 6101, [id number], [id number] ####[facility] [place] [address], [facility] APTTon 02-15-2018 aPTT Coag time (Bld) 146.9 s Critically high 25.0-35.0 [facility] Comment on above: Order Comment: No: D o not add to previous draw Result Comment: ALL RESULTS MUST BE INTERPRETED WITH RESPECT TO BLOOD DRAWING ARTIFACTOR DILUTION ERROR OF ANTICOAGULANT AT THE TIME OF SAMPLING.THE APTT SHOULD NOT BE USED TO MONITOR UNFRACTIONATED HEPARIN THERAPY, THIS LABORATORY NO LONGER HAS AN ESTABLISHED THERAPEUTIC RANGE BASEDON THE APTT. IT IS RECOMMENDED THAT THE UFH - HEPARIN ASSAY (ANTI-XAACTIVITY) BE USED FOR THIS PURPOSE.APTT RESULT REPEATED AND CONFIRMEDRESULTS CHECKED AND CALLED. ACCURATELY READ BACK BY DAHLIA MORGAN AT 2210 15Feb2018 Performed By: #### 5 7307, [id number] ####[facility] [facility].[address] UFH HEPARIN ASSAYon 02-16-20 18 UNFRACTIONATED HEPARIN 0.82 IU/mL High 0.30-0.70 [facility] Comment on above: Result Comment: Deysi roxaban and Apixaban will interfere with the anti Xa assay used tomonitor UFH and LMWH.CLINICAL SIGNIFICANCE OF THE PTT RESULT IS QUESTIONABLE IN THE PRESENCEOF HEPARIN.RESULTS CHECKED AND CALLED. ACCURATELY READ BACK BY DAHLIA MORGAN AT 2210 15Feb2018 Performed By: #### 5 7307, [id number] ####[facility] [place] [address], [facility] BASIC METABOLIC PANELon 09-19 Calcium mass conc 8.9 mg/dL Normal 8.6-10.3 [facility] Comment on above: Performed By: #### 0 0071 ####[facility] [place] [address], [facility] Chloride molar conc 105 mmol/L Normal 98-107 [facility] Comment on above: Performed By: #### 0 0071 ####[facility] [place] [address], [facility] CO2 molar conc 26 mmol/L Normal 21-31 [facility] Comment on above: Performed By: #### 0 0071 ####[facility] [place] [address], [facility] Creatinine mass conc 0.88 mg/dL Normal 0.70-1.30 [facility] Comment on above: Performed By: #### 0 0071 ####[place] [address] [place] [address], [facility] GFR/1.73 sq M predicted among blacks MDRD vol rate/area (S/P/Bld) mL/min/{1.73_m2} Normal >60 [facility] Comment on above: Result Comment: Calc ulation may not be valid for patients over 70 years Performed By: #### 0 0071 ####[facility] [place] [address], [facility] GFR/1.73 sq M predicted among non-blacks MDRD vol rate/area (S/P/Bld) mL/min/{1.73_m2} Normal >60 [facility] Comment on above: Result Comment: Calc ulation may not be valid for patients over 70 years Performed By: #### 0 0071 ####[facility] [place] [address], [facility] Glucose mass conc 104 mg/dL High 70-100 [facility] Comment on above: Performed By: #### 0 0071 ####[facility] [place] [address], [facility] Potassium molar conc 3.7 mmol/L Normal 3.5-5.1 [facility] Comment on above: Performed By: #### 0 0071 ####[facility] Sodium molar conc 137 mmol/L Normal 136-145 [facility] Comment on above: Performed By: #### 0 0071 ####[facility] [facility].[address] Urea nitrogen mass conc 13 mg/dL Normal 7-25 [facility] Comment on above: Performed By: #### 0 0071 ####[facility] CBC COMPLETE BLOOD COUNTon 0 - Erythrocyte distribution width Auto Ratio (RBC) 12.5 % Normal 11.5-15.0 [facility] Comment on above: Performed By: #### 5 0608 ####[address] Hematocrit Auto Volume Fraction (Bld) 39.1 % Normal 39.0-50.0 [facility] Comment on above: Performed By: #### 5 0608 ####[place] [address] Hemoglobin mass conc (Bld) 12.9 g/dL Low 13.0-17.0 [facility] Comment on above: Performed By: #### 5 0608 ####[place] [address] [facility].[address] MCH Auto Entitic mass (RBC) 31.5 pg Normal 27.0-33.0 [facility] Comment on above: Performed By: #### 5 0608 ####[place] [address] MCHC Auto mass conc (RBC) 33.0 g/dL Normal 32.0-35.0 [facility] Comment on above: Performed By: #### 5 0608 ####[address] MCV Auto Entitic volume (RBC) 95.4 fL Normal 82.0-98.0 [facility] Comment on above: Performed By: #### 5 0608 ####[facility] [facility].[address] Nucleated RBC/100 WBC Ratio (Bld) 0 % Normal 0-0 [facility] Comment on above: Performed By: #### 5 0608 ####[facility] PLAT CNT 232 10*3/uL Normal 150-400 [facility] Comment on above: Performed By: #### 5 0608 ####[facility] RBC Auto #/vol (Bld) 4.10 10*6/uL Low 4.20-5.70 [facility] Comment on above: Performed By: #### 5 0608 ####[place] [address] WBC Auto #/vol (Bld) 6.3 10*3/uL Normal 4.0-10.6 [facility] Comment on above: Performed By: #### 5 0608 ####[address] Cardiovascular Lab Reporton 10-06-2017 Cardiovascular Lab Report [facility] Patient Name: Archie Duncan [facility] MR #: [id number] Physician: Satnam Cohen of [facility] Service Date: 10/06/2017Division of Birthdate: 2Cardiology Room #: CCAdult CardiovascularServices[place] [address]Phone Fax Cardiovascular Laboratory ReportMr. Duncan is a patient of mine from [place], [place]. He has atrialflutter. I saw him in the office and discussed options with him includingcardioversion or ablation. He has been on Xarelto consistently for 5 weekstime. Next, he was consented. Next, he was brought to the EP lab sterile,prepped, and draped given conscious sedation with Versed and fentanyl.Next, a single 150 joule countershock converted him to sinus rhythm. Hewas reversed with Romazicon. There were no apparent complications. PostEKG shows sinus rhythm. Next, he will follow up with me in [place].ASSESSMENT:1. Conscious sedation.2. Elective external cardioversion.Electronically Signed by:Satnam Mahan M.D. 10/07/2017 12:59 P Satnam Mahan M.D.Date Dict: 10/06/2017/08:48 A/Satnam Mahan M.D.Date Trans: 10/06/2017 01:17 [id number]: Alberto Ram D.O. [address] [place] [address] A [facility] [id number] [facility] Vital Signs Date Time Vital Sign Value Performing Clinician Facility 02-09-2024 14:40-0400 Body height 162.56 cm [facility] 02-09-2024 14:40-0400 Body mass index (BMI) [Ratio] 27.6 kg/m2 [facility] 02-09-2024 14:40-0400 Body weight 73.08 kg [facility] 02-09-2024 14:40-0400 Diastolic blood pressure 71 mm[Hg] [facility] 02-09-2024 14:40-0400 Heart rate 66 /min [facility] 02-09-2024 14:40-0400 Respiratory rate 12 /min [facility] 02-09-2024 14:40-0400 Systolic blood pressure 116 mm[Hg] [facility] 10-19-2022 11:00-0400 Body height 172.72 cm Alberto Ram Other [employer] Other 10-19-2022 11:00-0400 Body mass index (BMI) [Ratio] 24.39 kg/m2 Alberto [employer] Other [employer] Other 10-19-2022 11:00-0400 Body weight 72.76 kg Alberto [employer] Other [employer] Other 10-19-2022 11:00-0400 Diastolic blood pressure 70 mm[Hg] [employer] Other [employer] Other 10-19-2022 11:00-0400 SaO2% (BldA) [Mass fraction] 94 % Alberto [employer] Other [employer] Other 10-19-2022 11:00-0400 Systolic blood pressure 131 mm[Hg] Alberto [employer] Other [employer] Other 11-05-2021 10:50-0400 Diastolic blood pressure 66 mm[Hg] Chair [place] Work Phone: [facility] 11-05-2021 10:50-0400 Heart rate 52 /min Chair Christie Work Phone: [facility] 11-05-2021 10:50-0400 Respiratory rate 16 /min Chair Christie Work Phone: [facility] 11-05-2021 10:50-0400 SaO2% (BldA) [Mass fraction] 99 % Chair [place] Work Phone: [facility] 11-05-2021 10:50-0400 Systolic blood pressure 128 mm[Hg] Chair Christie Work Phone: [facility] 10-24-2021 11:14-0400 Body height 174 cm Jose A Sotomayor MD Work Phone: [facility] 10-24-2021 11:14-0400 Body temperature 97.81 [degF] Jose A Sotomayor MD Work Phone: [facility] 10-24-2021 11:14-0400 Body weight 74.12 kg Jose A Sotomayor MD Work Phone: [facility] 10-24-2021 11:14-0400 Diastolic blood pressure 81 mm[Hg] Jose A Sotomayor MD Work Phone: [facility] 10-24-2021 11:14-0400 Heart rate 61 /min Jose A Sotomayor MD Work Phone: [facility] 10-24-2021 11:14-0400 Respiratory rate 16 /min Jose A Sotomayor MD Work Phone: [facility] 10-24-2021 11:14-0400 SaO2% (BldA) [Mass fraction] 99 % Jose A Sotomayor MD Work Phone: [facility] 10-24-2021 11:14-0400 Systolic blood pressure 151 mm[Hg] Jose A Sotomayor MD Work Phone: [facility] Encounters Encounter Date Encounter Type Care Provider Facility Start: 02-09-2024 End: 02-09-2024 ambulatory DO Alberto Yo Work Phone: [facility] Work Phone: Start: 02-09-2024 End: 02-09-2024 Patient encounter procedure DO Alberto Yo Work Phone: [facility] Start: 02-09-2024 End: 02-09-2024 ambulatory [facility] Work Phone: Start: 02-09-2024 End: 02-09-2024 Patient encounter procedure [facility] Work Phone: Start: 02-01-2024 End: 02-01-2024 ambulatory ARCHIE SAMAYOA Not Available Start: 01-12-2024 End: 01-12-2024 ambulatory EPI B APLING Not Available Start: 12-29-2023 End: 12-29-2023 ambulatory EPI B APLING Not Available Start: 12-15-2023 End: 12-15-2023 ambulatory EPI B APLING Not Available Start: 10-23-2022 End: 10-23-2022 ambulatory Alberto Ram Other [employer] Other Start: 10-23-2022 Telephone encounter Alberto COOPER [facility] Start: 10-22-2022 End: 10-22-2022 ambulatory Alberto Ram Other [employer] Other Start: 10-22-2022 Telephone encounter Alberto COOPER [facility] Start: 10-21-2022 End: 10-22-[address] ALBERTO RAM Facility:[facility] Start: 10-20-2022 End: 10-20-2022 ambulatory Alberto Ram Other [employer] Other Start: 10-20-2022 Telephone encounter Alberto COOPER [facility] Start: 10-19-2022 End: 10-19-2022 ambulatory Alberto Ram Other [employer] Other Start: 10-19-2022 Patient encounter procedure Alberto Ram [facility] Start: 07-02-2022 End: 07-22-[address] ALBERTO RAM Facility:[facility] Start: 11-05-2021 Telephone encounter Financial Navigator Arron Work Phone: Hematology/Oncology Comment on above: Benefits Investigati on Start: 11-05-2021 End: 11-05-2021 ambulatory Chair Nela Soriano Work Phone: Hematology/Oncology Comment on above: Iron deficiency anem ia due to chronic blood loss (Primary Dx) Start: 10-24-2021 End: 10-24-2021 ambulatory Jose A Sotomayor MD Work Phone: Hematology/Oncology Comment on above: Iron deficiency anem ia due to chronic blood loss (Primary Dx) Start: 10-24-2021 End: 10-24-2021 Patient encounter procedure Jose A Sotomayor MD Work Phone: [facility] Start: 10-23-2021 Chart abstracting Jose A chandler MD Work Phone: Hematology/Oncology Start: 06-16-2018 Patient encounter procedure Payal James Facility:[id number] Start: 02-15-2018 End: 02-16-2018 Patient encounter SATNAM MAHAN Facility:[facility] Start: 01-20-2018 End: 01-21-2018 Patient encounter DEFAULT PHYSICIAN Facility:[facility] Start: 10-06-2017 End: 10-07-2017 Patient encounter SATNAM MAHAN Facility:[facility] Plan of Treatment Date Care Activity Detail Author Start: 10-24-2024 DIABETES SCREEN DIABETES SCREEN [facility] Start: 02-09-2024 EKG 12 channel panel [facility] Start: 02-19-2022 Influenza vaccination INFLUENZ A (Season Ended) [facility] Start: 12-05-2021 End: 02-04-2022 CBC W Auto Differential panel - Blood CBC + DIFF Lab Routine Iron deficiency anemia due to chronic blood loss Expected: 12/05/2021 (Approximate), Expires: 02/04/2022 [facility] Work Phone: Comment on above: Expected: 12/05/2021 (Approximate), Expires: 02/04/2022 Start: 12-05-2021 End: 02-04-2022 FERRITIN BLD FERRITIN BLD Lab Routine Iron deficiency anemia due to chronic blood loss Expected: 12/05/2021 (Approximate), Expires: 02/04/2022 [facility] Work Phone: Comment on above: Expected: 12/05/2021 (Approximate), Expires: 02/04/2022 Start: 12-05-2021 End: 02-04-2022 IRON + TIBC IRON + TIBC Lab Routine Iron deficiency anemia due to chronic blood loss Expected: 12/05/2021 (Approximate), Expires: 02/04/2022 [facility] Work Phone: Comment on above: Expected: 12/05/2021 (Approximate), Expires: 02/04/2022 Start: 10-24-2021 End: 12-24-2021 FERRITIN BLD [facility] Work Phone: Comment on above: Expected: 10/24/2021 , Expires: 12/24/2021 Start: 10-24-2021 End: 12-24-2021 IRON + TIBC [facility] Work Phone: Comment on above: Expected: 10/24/2021 , Expires: 12/24/2021 Start: 07-19-2021 COVID-19 VACCINE (4 - Booster for Pfizer series) COVID-19 VACCINE (4 - Booster for Pfizer series) [facility] Start: 06-21-2021 ADVANCE DIRECTIVE DISCUSSION ADVANCE DIRECTIVE DISCUSSION [facility] Start: 2007 PNEUMOVAX AGE 65 AND OVER WITH 5YR LOOKBACK (#1) PNEUMOVAX AGE 65 AND OVER WITH 5YR LOOKBACK (#1) [facility] Start: 02-08-1992 SHINGRIX VACCINE (1 of 2) CASTRO GRIX VACCINE (1 of 2) [facility] Start: 1987 DIABETES SCREEN DIABETES SCREEN [facility] Start: 1961 Urine microalbumin profile DTAP,TDAP,TD (1 - Tdap) [facility] Start: 1954 Adult depression screening assessment DEPRESSION SCREENING [facility] Start: 1947 COVID-19 VACCINE (1) COVID-19 VACCIN E (1) [facility] Comprehensive metabo lic 2000 panel - Serum or Plasma [facility] Immunizations Immunization Date Immunization Notes Care Provider Fa cility 03-25-2022 influenza, high dose seasonal, preservative-free Alberto Ram Other [employer] Other 03-25-2022 influenza virus vaccine, unspecified formulation [facility] 02-17-2022 COVID-19 Pfizer Alberto aponte Other [facility] 03-26-2021 influenza virus vaccine, unspecified formulation [facility] 03-25-2021 COVID-19 Vaccine Pfi zer - Documentation Purposes Only Alberto Ram Other [facility] 03-19-2021 COVID-19 Vaccine Pfi zer - Documentation Purposes Only Alberto Ram Other [facility] 02-22-2021 influenza, high-dose , quadrivalent vaccine (FLUZONE HIGH DOSE QUADRIVALENT) Jose A Sotomayor MD Work Phone: [facility] 08-12-2020 COVID-19 Vaccine Pfi zer - Documentation Purposes Only Alberto Ram Other [facility] 07-22-2020 COVID-19 Vaccine Pfi zer - Documentation Purposes Only Alberto Ram Other [facility] 04-08-2020 influenza virus vaccine, unspecified formulation [facility] 04-08-2020 influenza, injectabl e, quadrivalent, preservative free Jose A Sotomayor MD Work Phone: [facility] 02-03-2020 influenza virus vaccine, unspecified formulation [facility] 02-03-2020 influenza, high-dose , quadrivalent vaccine (FLUZONE HIGH DOSE QUADRIVALENT) Jose A Sotomayor MD Work Phone: [facility] 07-22-2019 COVID-19 mRNA, Comirnaty (Pfizer) [facility] 04-19-2019 influenza, injectabl e, quadrivalent, contains preservative Jose A Sotomayor MD Work Phone: [facility] 04-20-2018 influenza virus vaccine, unspecified formulation [facility] 04-20-2018 Seasonal trivalent influenza vaccine, adjuvanted, preservative free Jose A Sotomayor MD Work Phone: [facility] 03-11-2017 influenza virus vaccine, unspecified formulation [facility] 03-11-2017 influenza, high dose seasonal, preservative-free Jose A Sotomayor MD Work Phone: [facility] 04-20-2016 influenza virus vaccine, unspecified formulation [facility] 04-20-2016 influenza, high dose seasonal, preservative-free Jose A Sotomayor MD Work Phone: [facility] 03-21-2016 influenza, injectabl e, quadrivalent, preservative free Jose A Sotomayor MD Work Phone: [facility] 05-03-2015 influenza virus vaccine, unspecified formulation [facility] 05-03-2015 influenza, high dose seasonal, preservative-free Jose A Sotomayor MD Work Phone: [facility] 04-25-2015 pneumococcal conjuga te vaccine, 13 valent Alberto Ram Other [facility] 03-21-2015 pneumococcal polysaccharide vaccine, 23 valent Jose A Sotomayor MD Work Phone: [facility] 04-11-2014 influenza, seasonal, injectable Jos eA Sotomayor MD Work Phone: [facility] 04-14-2013 influenza, seasonal, injectable Jose A Sotomayor MD Work Phone: [facility] Payers Date Payer Category Payer Self-pay [id number] 2021 Private Health Insurance [facility] AARP SUPPLEMENT [id number] 2021-Present [phone] [address] [place] [address] Indemnity [id number] 2007 Medicare MEDICARE MEDICAR E A AND B [id number] 2007-Present [phone] [address] [address] [place] [address] Medicare [id number] 1959 Medicare [id number] 1959 Unknown [id number] 1942 Unknown [id number] 1942 Unknown [id number] .593 1942 Unknown [id number] .593 1942 Unknown [id number] .1259 1942 Unknown [id number] .1259 1942 Unknown [id number] .1259 1942 Unknown [id number] [id number] .1259 1942 Unknown [id number] [id number] .1259 Medicare [id number] Unknown Unknown [facility] Health Claims [id number] Unknown [id number] Social History Date Type Detail Facility Start: 10-23-2021 End: 11-10-2021 Tobacco smoking status NHIS Never smoked tobacco [facility] Start: 10-23-2021 Tobacco use and exposure Smokeless tobacco non-user [facility] Start: 1940 Sex Assigned At Not on file C [facility] Start: 10-14-2021 End: 11-05-2021 Exposure to SARS-CoV-2 (event) Not sure [facility] Sex Assigned At Sex Assigned At [facility] [employer] Other Start: 1940 Sex Assigned At Male F [facility] Clinical Notes 10-24-2021 to 10-23-2022 Note Date & Type Note Facility 10-23-2022 Note This report has been cancelled. [facility] 10-23-2022 Note This report has been cancelled. [facility] 10-23-2022 Note This report has been cancelled. [facility] 10-20-2022 Evaluation note Encounter Date Diagnosis Assessment Notes October, ASHD (arteriosc lerotic heart disease) (ICD-10 - I25.10) [employer] Other 05-01-2023 Evaluation note* Encounter Date Diagnosis Assessment Notes Treatment Notes Treatment Clinical Notes October, Medicare annual wellness visit, subsequent (ICD-10 - Z00.00) Personalized health advice was given to the beneficiary including a written plan for screenings discussed and provided. Advanced care planning reviewed and/or information given as requested. Additional counseling was provided here today in regards to, [ ]. The above visit was performed by [ ], under direct supervision of [ ]. Document reviewed and amended by provider signed below. October, Hyperlipidemia type II (ICD-10 - E78.01) Instructed on diet and exercise with continued statin therapy.Discussed the beneficial effects of lowering cholesterol in reducing the risk for cerebrovascular and cardiovascular disease. October, ASHD (arteriosclerotic heart disease) (ICD-10 - I25.10) This patient is stable without activity related CP, dyspnea or lightheadedness. They are instructed to continue exercise and AHA diet plan. October, Essential hypertension (ICD-10 - I10) This patient is instructed to consume a healthy, low-fat, low-salt diet. They are also encouraged to continue exercise to achieve/maintain a normal BMI. October, Paroxysmal atrial fibrillation (ICD-10 - I48.0) This patient is in NSR or rate controlled. This patient is anticoagulated to prevent thromboembolic events. 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 October, Iron deficiency anemia due to chronic blood loss (ICD-10 - D50.0) No s/s bleeding Denies abdominal pain, N/V, heartburn, dysphagia, melena or hematochezia October, Subclinical hypothyroidism (ICD-10 - E03.8) Recheck TSH, FT4, TT3 October, Thyroid nodule (ICD-10 - E04.1) Monitor for changes [employer] Other 06-17-2022 NoteHNO ID: [id number] Author: Jose A Sotomayor MD Service: ? Author Type: Physician Type: Progress Notes Filed: 12/05/2021 11:25 AM Note Text: HEMATOLOGY FOLLOW UP Elements in this clinic note that are critical to medical decision making have been carefully reviewed and included from my prior clinic note dated: October 24, 2021 December 05, 2021 PCP and other physicians involved in patient's care: Alberto Ram (PCP), Cullen Connolly (GI) DIGANOSIS Iron deficiency anemia HEMATOLOGICAL HISTORY: ? Prostate cancer diagnosed in 2016 with an initial PSA of 102 and [place] 7+3. He was treated by external beam radiation and 2 years of ADT (leuprolide and bicalutamide) at [facility]. He completed ADT in June 2017. PSA <0.05 in September 2021. ? Patient has a history of iron deficiency anemia initial diagnosed in 2018. He had an EGD and colonoscopy (Dr. Cooper) that did not reveal any significant findings on EGD but he had diverticular disease. CBC in 2021 was notable for hemoglobin of 10.5 g/dL and ferritin of 9. He was referred to me in October 2021 for iron deficiency anemia and consideration of iron infusion. ? November 05, 2021 Monoferric 1000 mg ? November 10, 2021 EGD and colonoscopy (Dr. Connolly); EGD was normal; colonoscopy notable for internal hemorrhoids and diverticular disease; no obvious cause of bleed INTERVAL HISTORY: Archie comes for a follow up. He is here with his . Since last visit, he received a dose of monoferric and had scopes. Findings detailed above. He is here for follow-up CBC check. Unfortunately, his symptoms including mild aches in his legs and arthritis in hands has not improved since infusion. Overall doing well. ROS is negative except that mentioned in HPI PAST MEDICAL SURGICAL FAMILY AND SOCIAL HISTORY: He has a history of ? Prostate cancer, diagnosed 2016, details above ? Coronary artery disease, status post CABG ? Atrial fibrillation, on rivaroxaban ? Osteoarthritis ? Hypothyroidism ? Iron deficiency anemia Previous procedures include atrial ablation, coronary artery bypass graft, right shoulder scope and GI scopes. No previous substance abuse. Family history is without any hematological disease. At baseline, he is very independent and leads an active life. 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 MEDICATIONS AND ALLERGIES: Reviewed PHYSICAL EXAM BP 134/84 Pulse (!) 56 Temp 36.5 ?C (97.7 ?F) (Temporal) Resp 16 Ht 174 cm (5' 8.5 ) Wt 71.4 kg (157 lb 7.5 oz) SpO2 99% BMI 23.59 kg/m? Head atraumatic, no pallor or icterus, breathing comfortably, abdomen soft without distension or organomegaly, neuro grossly non-focal, skin without rash, extremities without swelling or inflammation LABORATORY, IMAGING AND PATHOLOGY Labs hemoglobin 11.4 hemoglobin 12.8, ferritin 79, iron saturation 29% hemoglobin 10.5, ferritin 9, saturation 10% hemoglobin 9.8, ferritin 18, TIBC 470 11-05-21 monoferric 1 g 11-19 17 hemoglobin 11.4, ferritin in process Scopes 11-10-21 EGD and colonoscopy notable for moderate diverticular disease and internal hemorrhoids ASSESSMENT AND RECOMMENDATIONS 81 male with iron deficiency anemia ? Iron deficiency anemia is likely multifactorial secondary to small GI losses (scopes showed hemorrhoids and diverticular disease) exacerbated by use of rivaroxaban and clopidogrel. He received a dose of Monoferric in October 2021 that resulted in improvement of hemoglobin. Continue monitoring ferritin routinely. Repeat check in 6 weeks. If patient becomes anemic again, additional testing such as scans, H pylori, celiac screen, and capsule endoscopy might be indicated. His non-specific symptoms such as leg pain do not seem to be related to the underlying iron deficiency. ? Prostate cancer: He will continue to follow with Dr. Ram for routine PSA checks. Jose A Sotomayor MD I spent a total of 20 minutes on the date of the service which included preparing to see the patient, [id number] patient care, completing clinical documentation, obtaining and/or reviewing separately obtained history, performing a medically appropriate examination, counseling and educating the patient/family/caregiver, ordering medications, tests, or procedures, independently interpreting results (not separately reported) and communicating results to the patient/family/caregiver. CC: [facility] Miscellaneous Notes* Telephone Encounter - Matthew Burroughs [facility] - 11/05/2021 8:53 AM EDT 1st report of treatment-Non oncology regimen (Monoferric) Patient holds Medicare coverage w/ supplement. No FA available at this time. documented in this encounterAs[facility] NoteHNO ID: [id number] Author: Jose A Sotomayor MD Service: ? Author Type: Physician Type: Progress Notes Filed: 10/24/2021 12:30 PM Note Text: HEMATOLOGY INITIAL CONSULTATION October 24, 2021 REFERRAL REQUESTED BY: Alberto Ram PCP and other physicians involved in patient's care: Alberto Ram (PCP) REASON FOR CONSULTATION: Iron deficiency anemia HEMATOLOGICAL HISTORY: ? Prostate cancer diagnosed in 2016 with an initial PSA of 102 and [place] 7+3. He was treated by external beam radiation and 2 years of ADT (leuprolide and bicalutamide) at [facility]. He completed ADT in June 2017. PSA nam < 0.05. ? Patient has a history of iron deficiency anemia initial diagnosed in 2018. He had an EGD and colonoscopy (Dr. Cooper) that did not reveal any significant findings on EGD but he had diverticular disease. He was referred to me in October 2021 for iron deficiency anemia and consideration of iron infusion HPI: This is a 81-year-old male who comes to clinic for evaluation of iron deficiency anemia. Histological history is as detailed above. He is here with his . Briefly, patient has a history of iron deficiency anemia that was noted in 2019. He had an EGD and colonoscopy that was notable for diverticulosis. Patient does not recollect being on oral or intravenous iron. No previous transfusion history. He has very minimal symptoms and the reason he sought initial medical attention was for leg cramps. CBC earlier this year was notable for hemoglobin of 10.5 g/dL and ferritin of 9. He does endorse a history of hemorrhoids and occasional bright red blood per rectum. He has a history of prostate cancer and was treated with radiation and androgen deprivation for 2 years. He completed his treatments and 2018. PSA remains undetectable. He has been scheduled for EGD and colonoscopy on November 10, 2021. At baseline, he is very independent and leads an active life. 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 ROS is negative except that mentioned in HPI PAST MEDICAL SURGICAL FAMILY AND SOCIAL HISTORY: He has a history of ?Prostate cancer, diagnosed 2016, details above ?Coronary artery disease, status post CABG ?Atrial fibrillation, on rivaroxaban ?Osteoarthritis ? Hypothyroidism ? Iron deficiency anemia Previous procedures include atrial ablation, coronary artery bypass graft, right shoulder scope and GI scopes. No previous substance abuse. Family history is without any hematological disease. At baseline, he is very independent and leads an active life. 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 MEDICATIONS AND ALLERGIES: Reviewed PHYSICAL EXAM BP 151/81 Pulse 61 Temp 36.6 ?C (97.8 ?F) (Temporal) Resp 16 Ht 174 cm (5' 8.5 ) Wt 74.1 kg (163 lb 6.4 oz) SpO2 99% BMI 24.48 kg/m? Head atraumatic, no pallor, icterus or lymphadenopathy, lungs clear to auscultation, heart sounds regular, abdomen soft without distension or organomegaly, neuro grossly non-focal, skin without rash, extremities without swelling LABORATORY, IMAGING AND PATHOLOGY hemoglobin 11.4 hemoglobin 12.8, ferritin 79, iron saturation 29% hemoglobin 10.5, ferritin 9, saturation 10% PSA <0.05 in September 2021 ASSESSMENT AND RECOMMENDATIONS 81 male with iron deficiency anemia Iron deficiency anemia is likely secondary to GI losses. He has scopes scheduled for November 10, 2021. His symptoms related to anemia are minimal. I discussed either a trial of oral iron and proceeding to parenteral iron should he develop side effects or intolerance. Given his suspected GI bleeding and preference, we will opt for a dose of Monoferric in 2 weeks. I will see him back in 6 weeks for a repeat assessment of iron parameters. He will continue to follow with Dr. Ram for routine PSA checks. Jose A Sotomayor MD I spent a total of 50 minutes on the date of the service which included preparing to see the patient, [id number] patient care, completing clinical documentation, obtaining and/or reviewing separately obtained history, performing a medically appropriate examination, counseling and educating the patient/family/caregiver, ordering medications, tests, or procedures, independently interpreting results (not separately reported) and communicating results to the patient/family/caregiver. CC: [facility] History of Present illness Narrative* Jose A Sotomayor MD - 10/24/2021 11:41 AM EDT HEMATOLOGY INITIAL CONSULTATION October 24, 2021 REFERRAL REQUESTED BY: Alberto Ram PCP and other physicians involved in patient's care: Alberto Ram (PCP) REASON FOR CONSULTATION: Iron deficiency anemia HEMATOLOGICAL HISTORY: Prostate cancer diagnosed in 2016 with an initial PSA of 102 and [place] 7+3. He was treated by external beam radiation and 2 years of ADT (leuprolide and bicalutamide) at [facility]. He completed ADT in June 2017. PSA nam < 0.05. Patient has a history of iron deficiency anemia initial diagnosed in 2018. He had an EGD and colonoscopy (Dr. Cooper) that did not reveal any significant findings on EGD but he had diverticular disease. He was referred to me in October 2021 for iron deficiency anemia and consideration of iron infusion HPI: This is a 81-year-old male who comes to clinic for evaluation of iron deficiency anemia. Histological history is as detailed above. He is here with his . Briefly, patient has a history of iron deficiency anemia that was noted in 2018. He had an EGD and colonoscopy that was notable for diverticulosis. Patient does not recollect being on oral or intravenous iron. No previous transfusion history. He has very minimal symptoms and the reason he sought initial medical attention was for leg cramps. CBC earlier this year was notable for hemoglobin of 10.5g/dL and ferritin of 9. He does endorse a history of hemorrhoids and occasional bright red blood per rectum. He has a history of prostate cancer and was treated with radiation and androgen deprivation for 2 years. He completed his treatments and 2018. PSA remains undetectable. He has been scheduledfor EGD and colonoscopy on November 10, 2021. At baseline, he is very independent and leads an active life. 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 ROS is negative except that mentioned in HPI PAST MEDICAL SURGICAL FAMILY AND SOCIAL HISTORY: He has a history of Prostate cancer, diagnosed 2016, details above Coronary artery disease, status post CABG Atrial fibrillation, on rivaroxaban Osteoarthritis Hypothyroidism Iron deficiency anemia Previous procedures include atrial ablation, coronary artery bypass graft, right shoulder scope andGI scopes. No previous substance abuse. Family history is without any hematological disease. At baseline, he is very independent and leads an active life. 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 MEDICATIONS AND ALLERGIES: Reviewed PHYSICAL EXAM BP 151/81 Pulse 61 Temp 36.6 C (97.8 F) (Temporal) Resp 16 Ht 174 cm (5' 8.5 ) Wt 74.1 kg(163 lb 6.4 oz) SpO2 99% BMI 24.48 kg/m Head atraumatic, no pallor, icterus or lymphadenopathy,lungs clear to auscultation, heart sounds regular, abdomen soft without distension or organomegaly,neuro grossly non- focal, skin without rash, extremities without swelling LABORATORY, IMAGING AND PATHOLOGY hemoglobin 11.4 hemoglobin 12.8, ferritin 79, iron saturation 29% hemoglobin 10.5, ferritin 9, saturation 10% PSA <0.05 in September 2021 ASSESSMENT AND RECOMMENDATIONS 81 male with iron deficiency anemia Iron deficiency anemia is likely secondary to GI losses. He has scopes scheduled for November 10, 2021. His symptoms related to anemia are minimal. I discussed either a trial of oral iron and proceeding to parenteral iron should he develop side effects or intolerance. Given his suspected GI bleeding andpreference, we will opt for a dose of Monoferric in 2 weeks. I will see him back in 6 weeks for a re peat assessment of iron parameters. He will continue to follow with Dr. Ram for routine PSA checks. Jose A Sotomayor MD I spent a total of 50 minutes on the date of the service which included preparing to see the patient, [id number] patient care, completing clinical documentation, obtaining and/or reviewing separately obtained history, performing a medically appropriate examination, counseling and educating the pat ient/family/caregiver, ordering medications, tests, or procedures, independently interpreting results (not separately reported) and communicating results to the patient/family/caregiver. CC: Alberto Ram documented in this encounterAshtabula [facility] HospitalEvaluation note* Diagnosis Iron deficiency anemia due to chronic blood loss- Primary Iron deficiency anemia secondary to blood loss (chronic) documented in this encounter [facility] HospitalEvalun[facility] foundation note* Diagnosis Iron deficiency anemia due to chronic blood loss- Primary Iron deficiency anemia secondary to blood loss (chronic) documented in this encounter [facility] noteNo [employer] Other Evaluation note* Diagnosis Onset Date Resolution Status Alzheimer's disease acute ASHD (arteriosclerotic heart disease) acute Atrial fibrillation acute Hypercholesterolemia acute Hypertension acute Subclinical hypothyroidism a cute Prostate cancer chronic Medicare annual wellness visit, subsequent noneactive [facility] Work Phone: History general Narrative - Reported* Type Description Date Medical History Iron deficiency anemia due to ch ronic blood loss Medical History Iron deficiency anemia Medical History Paroxysmal atrial fibrillation Medical History Arthritis of right shoulder jose on Medical History Arthritis of knee, left Medical History Thyroid nodule Medical History Glaucoma Medical History Subclinical hypothyroidism Medical History Hyperlipidemia type II Medical History Elevated TSH Medical History Vitamin D deficiency Medical History Prostate cancer Medical History Essential hypertension Medical History ASHD (arteriosclerotic heart dis ease) Surgical History COLONOSCOPY Surgical History EGD Surgical History TRUS/Bx PROSTATE Hospitalization History SEE SURGICAL [employer] Other History general Narrative - Reported* Type Description Date Medical History Iron deficiency anemia due to ch ronic blood loss Medical History Iron deficiency anemia Medical History Paroxysmal atrial fibrillation Medical History Arthritis of right shoulder jose on Medical History Arthritis of knee, left Medical History Thyroid nodule Medical History Glaucoma Medical History Subclinical hypothyroidism Medical History Hyperlipidemia type II Medical History Elevated TSH Medical History Vitamin D deficiency Medical History Prostate cancer Medical History Essential hypertension Medical History ASHD (arteriosclerotic heart dis ease) Surgical History COLONOSCOPY 09/2021 Surgical History EGD 09/2021 Surgical History TRUS/Bx PROSTATE Hospitalization History SEE SURGICAL [employer] Other Summary Purpose Family History No Family History Records Found Relationship Condition Age at Onset Recorded Date/T jefferson mother Malignant melanoma Unknown father Unknown family member Unknown mother Unknown Advance Directives No Advanced Directives Records Found Advance Directive Response Recorded Date/ Time Advance Directives No May 28, 2017 11:18am Medications Administered Section Inactive Administered Medications - up to 3 most recent administrations Medication Order MAR Action Action Date Dose Rate Site acetaminophen 650 mg tab(s) (TYLENOL) 650 mg, ORAL, ONCE, 1 dose, On Wed11/05/21 at 1100, Give 30 minutes prior to infusion. No more than 4000 mg of acetaminophen should be given per day (FROM ALL SOURCES), If ordered PRN for pain, patient/guardian may elect to receive this medication for higher pain levels INSTEAD of the opioid, if preferred: N/A Given 11/05/2021 11:02 AM EDT 650 mg diphenhydrAMINE 50 mg (BENADRYL) 50 mg, ORAL, ONCE, 1 dose, On Wed11/05/21 at 1100, Give 30 minutes prior to infusion. Given 11/05/2021 11:02 AM EDT 50 mg ferric derisomaltose 1,000 mg in NaCl 0.9% 100 mL (MONOFERRIC) 1,000 mg (set by rule on 10/24/2021 12:10 PM), INTRAVENOUS, Administer over 45 Minutes, ONCE, 1 dose, On Wed11/05/21 at 1100, Monitor patient for hypersensitivity reactions during the infusion and for 30 minutes after infusion is complete. EXP [id number] 11/05/21 EXP: (8 HR) New Bag/Syringe/Bottle 11/05/2021 11:31 AM EDT 1,000 mg Chief Complaint and Reason for Visit Chief Complaint wellness Reason for Visit Alzheimer's disease ASHD (arteriosclerotic heart disease) Atrial fibrillation Hypercholesterolemia Hypertension Subclinical hypothyroidism Prostate cancer Medicare annual wellness visit, subsequent Additional Source Comments (unrecognized sect ion and content) No Status Records FoundNo Status Records FoundNo Status Records FoundNo Status Records FoundNo Status Records FoundNo Status Records FoundNo Status Records FoundNo Status Records Found INFORMATION SOURCE (unrecogn ized section and content) DATE CREATED AUTHOR 02/27/[address] [facility] DATE CREATED AUTHOR AUTHOR'S ORGANIZ ATION 06/25/2018 [facility] DATE CREATED AUTHOR AUTHOR'S ORGANIZ ATION 09/28/2021 [facility] DATE CREATED AUTHOR AUTHOR'S ORGANIZ ATION 12/06/2021 [facility] DATE CREATED AUTHOR AUTHOR'S ORGANIZ ATION 10/29/2022 [facility] DATE CREATED AUTHOR AUTHOR'S ORGANIZ ATION 11/28/2022 [facility] DATE CREATED AUTHOR AUTHOR'S ORGANIZ ATION 02/03/2024 [facility] DATE CREATED AUTHOR AUTHOR'S ORGANIZ ATION 02/11/2024 [facility] Source Comments (unrecognize d section and content) In the event this informatio n is protected by the Federal Confidentiality of Alcohol and Drug Abuse Patient Records regulations: The Federal rules restrict any use of the information to criminally investigate or prosecute any alcohol or drug abuse patient.[facility] HospitalIn the event this information is protected by the Federal Confidentiality of Alcohol and Drug Abuse Patient Records regulations: The Federal rules restrict any use of the information to criminally investigate or prosecute any alcohol or drug abuse patient.[facility] HospitalIn the event this information is protected by the Federal Confidentiality of Alcohol and Drug Abuse Patient Records regulations: The Federal rules restrict any use of the information to criminally investigate or prosecute any alcohol or drug abuse patient.[facility] HospitalIn the event this information is protected by the Federal Confidentiality of Alcohol and Drug Abuse Patient Records regulations: The Federal rules restrict any use of the information to criminally investigate or prosecute any alcohol or drug abuse patient.[facility] Care Teams (unrecognized sec tion and content) Pewter Caster Relationship Specialty Start Date End Date Alberto Ram, DO [address] [facility] [place] [address] PCP - General Internal Medicine 10/21/21 Pewter Caster Relationship Specialty Start Date End Date Alberto Ram, DO [address] [facility] [place] [address] PCP - General Internal Medicine 10/21/21 Pewter Caster Relationship Specialty Start Date End Date Alberto Ram, DO [address] [facility] [address] PCP - General Internal Medicine 10/21/21 Pewter Caster Relationship Specialty Start Date End Date Alberto Ram, DO [address] [facility] [place] [address] PCP - General Internal Medicine 10/21/21 Team Status: Active Member Role Status Dates Alberto Ram DO Primary Care Provider Active Team Status: Inactive Member Role Status Dates Alberto Ram DO Primary Care Provide r, Attending Provider Active Start: February 09, 2024 End: February 09, 2024 Reason for Visit (unrecogniz ed section and content) Reason Comments Anemia Reason Comments Benefits Investigation Specialty Diagnoses / Procedures Referred By Contjosefina t Referred To Contact Diagnoses Iron deficiency anemia due to chronic blood loss Procedures INJECTION, FERRIC DERISOMALTOSE, 10 MG Jose A Sotomayor MD [address] [place] [address] [place] [address] [facility]ron Treat [address] [place] [address] Referral ID Status Reason Start Date Expiration Date V isits Requested Visits Authorized [id number] Authorized 10/24/2021 01/22/2022 1 1 Goals (unrecognized section and content) Goals may be documented in a n alternate section FOR RECORDS PERTAINING TO PATIENTS WHO ARE OR HAVE BEEN ENROLLED IN A CHEMICAL DEPENDENCY/SUBSTANCEABUSE PROGRAM, SOME INFORMATION MAY BE OMITTED. This clinical summary was aggregated from multiple sources. Caution should be exercised in using it in the provision of clinical care. This summary normalizes information from multiple sources, and as a consequence, information in this document may materially change the coding, format and clinical context of patient data. In addition, data may be omitted in some cases. CLINICAL DECISIONS SHOULD BE BASED ON THE PRIMARY CLINICAL RECORDS. [employer] [facility]. provides no warranty or guarantee of the accuracy or completeness of information in this document.
[2025-02-08 11:34] LABS: Hematocrit 43.0 % (42.0-54.0); Hemoglobin 14.3 g/dL (14.0-18.0); Immature Granulocytes Abs Auto 0.01 10^3/uL (0.00-0.03); Immature Granulocytes Pct Auto 0.2 % (0.0-0.5); Lymphocytes Absolute Auto 1.6 10^3/uL (1.2-3.8); Mean Corpuscular HGB Conc 33.3 g/dL (29.9-35.2); Mean Corpuscular Hemoglobin 31.2 pg (25.9-34.0); Mean Corpuscular Volume 93.9 fL (80.0-94.0); Platelet Count 221 10^3/uL (150-450); Red Blood Count 4.58 10^6/uL (4.70-6.10); White Blood Count 5.3 10^3/uL (4.0-11.0)
[2025-02-08 11:58] LABS: Alanine Aminotransferase 26 U/L (16-63); Albumin Globulin Ratio 1.1; Albumin Level 3.9 g/dL (3.4-5.0); Alkaline Phosphatase 86 U/L (46-116); Anion Gap 8.0; Aspartate Amino Transferase 26 U/L (15-37); Blood Urea Nitrogen 11.0 mg/dL (7.0-18.0); Calcium 9.2 mg/dL (8.5-10.1); Carbon Dioxide 29.4 mmol/L (21.0-32.0); Chloride 108 mmol/L (98-107); Cholesterol 257 mg/dL (<=200); Estimated GFR (African America >60 (>=60 mL/min/1.73m^2); Estimated GFR (Non-African Ame >60 (>=60 mL/min/1.73m^2); Globulin 3.4 g/dL; Glucose 100 mg/dL (74-106); HDL Cholesterol 42 mg/dL (40-60); Potassium 4.4 mmol/L (3.5-5.1); Sodium 141 mmol/L (136-145); TSH W/ REFLEX FT4 4.705 uIU/mL (0.358-3.740); Total Protein 7.3 g/dL (6.4-8.2); Triglycerides 201 mg/dL (<=150); VLDL CHOLESTEROL 40.2 mg/dL
== END 2025-02-08 10:21 | disposition home or self-care (01) ==
PROVIDERS: PCP Internal Medicine; Visit Provider Internal Medicine
DX: E78.00 Pure hypercholesterolemia, unspecified (principal); I10 Essential (primary) hypertension; I25.10 Atherosclerotic heart disease of native coronary artery without angina pectoris; E03.8 Other specified hypothyroidism; E04.1 Nontoxic single thyroid nodule
CPT/HCPCS: 36415; 80053; 80061; 84439; 84443; 85025